=== PATIENT | female | born 1960 | race Caucasian/White ===

== ENCOUNTER → 2020-05-31 11:18 | Outpatient (CLI) | payer OTHER, SELFPAY ==
--- NOTE | ~2020-05-31 | US_ITS ---
US renal BI 05/31/2020 13:13 Procedure: Realtime transabdominal ultrasound of the kidneys and bladder. Indication: Renal cysts. Right flank pain. Comparison: No prior studies for comparison. Findings: Renal echotexture is normal bilaterally without hydronephrosis, contour deforming mass or r enal calculus. There is a right renal cyst measuring 7 cm. The right kidney measures 10.6 cm and left kidney measures 10.7 cm. Bladder within normal limits. Impression: 1: Right renal cyst measuring 7 cm. Reviewed, dictated and finalized at location B. Impression: 1: Right renal cyst measuring 7 cm.
--- NOTE | ~2020-05-31 | US_ITS ---
US abdomen limited INDICATION: Right upper quadrant pain PROCEDURE: Realtime right upper abdominal ultrasound. COMPARISON: No prior studies for comparison. FINDINGS: The pancreas is normal without focal mass or pancreatic ductal dilation. Liver echotexture is normal without focal mass or intrahepatic biliary dilatation. There is normal directional flow i n the portal vein. The gallbladder is normal without stones, gallbladder wall thickening or pericholecystic fluid. Comm on bile duct measures 3 mm. No sonographic Grant's sign. IMPRESSION: 1: Normal limited abdominal ultrasound. Reviewed, dictated and finalized at location B.
== END ==
PROVIDERS: Visit Provider Clinical Nurse Specialist
DX: N28.1 Cyst of kidney, acquired (principal); R10.11 Right upper quadrant pain
CPT/HCPCS: 76705; 76775

== ENCOUNTER 2023-08-19 08:47 | Outpatient (RCR) | payer OTHER, SELFPAY ==
--- NOTE | 2023-08-19 09:46 | PTOPEVAL1 ---
Assessment and note entered by Francisco Munson, PT, DPT Evaluation Information Assessment Status Evaluation Diagnosis L hip bursitis Onset 4 months Subjective Information Pt reports a few months ago she started to notice hip pain reggie. She states she got a cortisone injection which she states she did not notice much relief from. She states her pain has improved over the last couple of weeks but is still lingering. She states she has twin granddaughters she likes to play with. Reported Pain Level Pain Score 3: Self Report Assessment PT Clinical Summary Susan presents to therapy today for her initial evaluation with a diagnosis of L hip bursitis. Today she demonstrates good hip ROM reggie, with fair hip strength. She demonstrates global hip strength grossly 4/5 and has mild tenderness to palpation in her piriformis muscle reggie. She was instructed in a HEP today and encouraged to start weight training 3x/wk. She elected to complete the exercises on her own and follow up in one month if needed. Plan of Care PT Services Indicated Yes Treatment Frequency and follow up in 1 month Duration These treatments will address the objective and functional deficits as defined above. The patient will be advanced safely and appropriately in order for the patient to progress towards his/her prior level of function. Additional exercises will be introduced and as well as a comprehensive home exercise program upon discharge, if needed, ?to ensure carryover of functional gains achieved in the clinic. This treatment plan has been reviewed and agreement upon by the patient.
--- NOTE | 2023-09-16 09:21 | PCPTNOTE ---
Patient did not show up for scheduled appointment this date. Called and LVM with follow up instructions.
--- NOTE | 2023-09-16 09:31 | PTOPDC ---
Assessment and note entered by Francisco Munson, PT, DPT Evaluation Information Assessment Status Discharge - Pt Not Present Diagnosis L hip bursitis Onset 4 months Subjective Information Pt did not show up for scheduled re-evaluation this date. Called and followed up with patient, she states she is doing well and does not need to continue therapy. Assessment PT Clinical Summary Susan was evaluated on 08/19/23 and has been doing her prescribed HEP for one month. She will be discharged at this time per pt request.
== END 2023-09-16 10:46 | disposition home or self-care (01) ==
LOC: ANHGOSHPT 08:47
PROVIDERS: PCP Internal Medicine; Visit Provider Clinical Nurse Specialist
DX: M70.62 Trochanteric bursitis, left hip (principal)
CPT/HCPCS: 97110; 97161; 99199

== ENCOUNTER 2024-08-25 14:22 | Outpatient (CLI) | payer OTHER, SELFPAY | END 2024-08-25 14:23 | disposition home or self-care (01) | LOC: ANHAUDIO 14:24 | PROVIDERS: PCP Internal Medicine; Visit Provider Nurse Practitioner | DX: H90.3 Sensorineural hearing loss, bilateral (principal); H93.13 Tinnitus, bilateral | CPT/HCPCS: 92557; 92567 ==

== ENCOUNTER 2024-12-12 14:08 | Outpatient (CLI) | payer OTHER, SELFPAY ==
--- NOTE | ~2024-12-12 | CT_ITS ---
EXAMINATION: CT IAC/mastoids BI w con DATE: 12/12/2024 14:58 INDICATION: Hearing loss. TECHNIQUE: Computed tomography (CT) of the temporal bones was performed with 75 mL Omnipaque 350 intr avenous contrast. Automated exposure control and iterative reconstruction technique were employed. Th e dose-length product was 171.03 mGy-cm. 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 There is a dis secting aneurysm of left cervical internal carotid artery with maximum diameter of 8 mm. RIGHT TEMPORAL BONE: The internal auditory canal, cochlea, vestibule, semicircular canals, vestibular aqueduct, carotid ca nal, jugular bulb, facial nerve course, ossicles, Prussak space, scutum, tympanic membrane, external auditory canal, and mastoid air cells are normal. LEFT TEMPORAL BONE: The internal auditory canal, cochlea, vestibule, semicircular canals, vestibular aqueduct, carotid ca nal, jugular bulb, facial course, ossicles, Prussak space, scutum, tympanic membrane, and mastoid air cells are normal. There is a small volume of cerumen in the external auditory canal. IMPRESSION: 1. Normal temporal bones. 2. 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 3. 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 Neck CTA is recommended. Reviewed, dictated and finalized at location A. ULTURIST
--- OUTSIDE RECORDS SUMMARY | 2024-12-12 15:05 | XMS_ITS | Encounter Summary ---
Author Organization [facility] Address [address] [place] [address] Care Team Providers Care Enrollment Coordinator Name Role Phone Sample, Geovani Flannery MD Unavailable [phone] Aundrea Velásquez MD Primary Care Provider Judith Goel MD Unavailable [phone] Remberto Xavier MD Unavailable Madelyn Leos MD Unavailable [phone] Remberto Xavier MD Primary Care Provider [phone] Remberto Xavier MD Unavailable Anthony Arzola DO Primary Care Provider Encounter Details Date Type Department Care Team (Late st Contact Info) Description 12/20/2014 [facility] Outpatient Visit [facility] - Endocrinology [address], [address] [place] [address] [place] [id number] [place] [address] [address] [place] [address] Social History Tobacco Use Types Packs/Day Years Used Date Smoking Tobacco: Former Smokeless Tobacco: Never Alcohol Use Standard Drinks/Week Comments Yes 0 (1 standard drink = 0.6 oz pur e alcohol) Sex and Gender Information Value Date Recorded Sex Assigned at Not on file Gender Identity Not on file Sexual Orientation Not on file documented as of this encounter Plan of Treatment Upcoming Encounters Date Type Department Care Team (Late st Contact Info) Description 06/27/2025 10:40 AM CDT Office Visit [facility] - Endocrinology [address], [address] [place] [address] [place] [address] [address] [place] [address] documented as of this encounter Visit Diagnoses Not on filedocumented in this encounter Care Teams Enrollment Coordinator Relationship Specialty Start Date End Date Aundrea Velásquez MD [address] [facility] [address] [place] [id number] PCP - General Internal Medicine 04/06/14 08/30/15 Remberto Xavier MD [address] [address] [place] [address] PCP - Attributed-Exclusive Choice 10/16/19 11/15/19 Remberto Xavier MD [address] [facility] [address] [place] [address] PCP - General Family Medicine 03/21/20 12/18/20 Remberto Xavier MD [address] [address] [place] [address] PCP - Attributed-[facility] EHP STL 01/15/20 02/14/20 Anthony Arzola DO [address] [facility] [address] [place] [address] PCP - General Internal Medicine 12/19/20 [place] [address] [facility] [address] [place] [address] Lead Massage Therapist Obstetrics and Gynecology 01/15/12 07/08/17 [place] [address] [address] [place] [address] Endocrinology 05/28/15 Madelyn Leos MD [address] [facility] [address] [place] [address] Obstetrics and Gynecology 07/09/17 documented as of this encounter
--- OUTSIDE RECORDS SUMMARY | 2024-12-12 15:05 | XMS_ITS | Encounter Summary ---
Author Organization [facility] Address [address] [facility] [place] [address] Care Team Providers Care Third Rigger Name Role Phone Sample, Geovani Flannery MD Unavailable Aundrea Velásquez MD Primary Care Provider Judith Goel MD Unavailable [phone] Remberto Xavier MD Unavailable Madelyn Leos MD Unavailable [phone] Remberto Xavier MD Primary Care Provider Remberto Xavier MD Unavailable Anthony Arzola DO Primary Care Provider Encounter Details Date Type Department Care Team (Late st Contact Info) Description 12/20/2014 [facility] Outpatient Visit [facility] - Endocrinology [address] [facility], [address] [place] [address] [place] [address] [place] [address] [address] [place] [address] Social History Tobacco Use Types [...] Description 06/27/2025 10:40 AM CDT Office Visit [facility] - Endocrinology [address] [facility], [address] [place] [address] [place] [address] [facility] [address] [place] [address] documented as of this encounter Visit Diagnoses Not on filedocumented in this encounter Care Teams Third Rigger Relationship Specialty Start Date End Date Aundrea Velásquez MD [address] [facility] [address] [place] [address] PCP - General Internal Medicine 04/06/14 08/30/15 Remberto Xavier MD [address] [facility] [address] [address] PCP - Attributed-Exclusive Choice 10/16/19 11/15/19 Remberto Xavier MD [address] [facility] [address] [place] [address] PCP - General Family Medicine 03/21/20 12/18/20 Remberto Xavier MD [address] [facility] [address] [place] [address] PCP - Attributed-[facility] EHP STL 01/15/20 02/14/20 Anthony Arzola DO [address] [facility] [address] [place] [address] PCP - General Internal Medicine 12/19/20 [place] [address] [facility] [address] [place] [address] Primary Education Professor Obstetrics and Gynecology 01/15/12 07/08/17 [place] [address] [facility] [address] [place] [address] Endocrinology 05/28/15 Madelyn Leos MD [address] [facility] [address] [place] [address] Obstetrics and Gynecology 07/09/17 documented as of this encounter
--- OUTSIDE RECORDS SUMMARY | 2024-12-12 15:05 | XMS_ITS | Encounter Summary ---
Author Organization [facility] Address [address] [place] [address] Care Team Providers Care Armament Repairer Name Role Phone Sample, Geovani Flannery MD Unavailable [phone] Judith Goel MD Unavailable Remberto Xavier MD Unavailable Madelyn Leos MD Unavailable [phone] Remberto Xavier MD Primary Care Provider Remberto Xavier MD Unavailable Anthony Arzola DO Primary Care Provider [phone] Encounter Details Date Type Department Care Team (Late st Contact Info) Description 02/07/2016 [facility] Outpatient Visit [facility] Remberto Xavier MD [address] [place] [address] Social History Tobacco Use Types Packs/Day Years [...] Description 06/27/2025 10:40 AM CDT Office Visit [facility] - Endocrinology [address] [facility], [address] [place] [address] [place] [address] [facility] [address] [place] [address] documented as of this encounter Goals Goal Patient Goal Type Associated Problems Recent Progress Patient-Stated? Author Blood Pressure < 140/90 Blood Pressure 118/78(2023 11:14 AM CDT) No Marissa Fletcher MA documented as of this encounter Visit Diagnoses Not on filedocumented in this encounter Care Teams Armament Repairer Relationship Specialty Start Date End Date Remberto Xavier MD [address] [address] PCP - Attributed-Exclusive Choice 10/16/19 11/15/19 Remberto Xavier MD [address] [facility] [address] [place] [address] PCP - General Family Medicine 03/21/20 12/18/20 Remberto Xavier MD [address] [address] PCP - Attributed-[facility] EHP STL 01/15/20 02/14/20 Anthony Arzola DO [address] [facility] [address] [place] [address] PCP - General Internal Medicine 12/19/20 [place] Bai [place] [id number] [place] [address] [address] [place] [address] Attendance Clerk Obstetrics and Gynecology 01/15/12 07/08/17 [place] [address] [facility] [address] [place] [address] Endocrinology 05/28/15 Madelyn Leos MD [address] [facility] [address] [place] [address] Obstetrics and Gynecology 07/09/17 documented as of this encounter
--- OUTSIDE RECORDS SUMMARY | 2024-12-12 15:06 | XMS_ITS | Referral Summary ---
Author Organization [facility] [employer] Address [address] [place] [address] Care Team Providers Care Sheet Metal Assembler Name Role Phone Judith Goel MD Unavailable [phone] Madelyn Leos MD Unavailable [phone] Anthony Arzola DO Primary Care Provider [phone] Source Comments [facility],non-owned Affiliates and Associated Physician Practices is amultiple site organization consisting of ambulatory clinics and hospital sitesin [place], [place], [place] and [place]. This disclosure is being madepursuant to the Care Everywhere program and may not contain all information available regarding this patient. 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 Medications * Be aware that medications may not be up to date on this document. Alwaysverify current medications with the patient. Medication Sig Dispensed Refills Start Date End Date Status Calcium Carbonate-Vitamin D (CALCIUM 600/VITAMIN D PO) Take 600 mg by mouth 2 times daily Active amLODIPine (NORVASC) 5 MG tablet Take 1 tablet by mouth once daily 90 tablet 3 04/14/2019 Active ASPIRIN 81 PO Take 81 mg by mouth Once daily 11/16/2019 Active Vitamin D3 (Cholecalciferol) 50 MCG (2000 UT) capsule Take 1 (one) capsule by mouth once daily 06/19/2022 Active alendronate (Fosamax) 70 MG tablet Take 1 (one) tablet by mouth every 7 days before meal 06/15/2024 Active levothyroxine (Synthroid) 50 MCG tabletIndications:Post operative hypothyroidism TAKE 1 TABLET BY MOUTH DAILY BEFORE BREAKFAST 90 tablet 2 09/15/2024 Active Active Problems Problem Noted Date Diagnosed Date Age-related osteoporosis wit hout current pathological fracture 06/20/2019 Postoperative hypothyroidism 05/26/2019 Left thyroid nodule 05/16/2019 Squamous cell papilloma of anal canal 06/12/2017 Vitamin D insufficiency 10/20/2016 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 11/29/2015 Early menopause 10/30/2015 HTN (hypertension) 04/07/2014 H/O partial thyroidectomy 04/07/2014 Urethral polyp 04/13/2013 Resolved Problems Problem Noted Date Diagnosed Date Resolved Date Osteoporosis 10/30/2015 06/20/2019 Vitamin D deficiency disease 04/07/2014 06/20/2019 Osteopenia 04/07/2014 11/29/2015 Immunizations Name Administration Dates Next Due Covid Single Cell Technology primary monoval ent 12+ yr 0.3mL Purple cap 11/29/2020,11/07/2020 Social History Tobacco Use Types Packs/Day Years Used Date Smoking Tobacco: Former Smokeless Tobacco: Never Tobacco Cessation:Counseling Given: Not Answered Comments:quit 30 yrs ago. Alcohol Use Standard Drinks/Week Comments Yes 0 (1 standard drink = 0.6 oz pur e alcohol) in moderation AUDIT-C Answer Date Recorded Frequency of Alcohol Consumption 2-3 times a wee k 12/19/2020 Average Number of Drinks 1 or 2 021 Frequency of Binge Drinking Never 01/2021 Sex and Gender Information Value Date Recorded Sex Assigned at Not on file Gender Identity Not on file Sexual Orientation Not on file Last Filed Vital Signs Vital Sign Reading Time Taken Comments Blood Pressure 118/78 06/27/2024 11:14 AM CDT Pulse 69 06/27/2024 11:14 AM CDT Temperature 36.5 ??C (97.7 ??F) 06/19/2022 9:37 AM CD T Respiratory Rate 20 06/20/2021 9:44 AM CDT Oxygen Saturation 98% 06/27/2024 11:14 AM CDT Inhaled Oxygen Concentration - - Weight 57.2 kg (126 lb) 06/27/2024 11:14 AM CDT Height 170.2 cm (5' 7 ) 06/27/2024 11:14 AM CDT Body Mass Index 19.73 06/27/2024 11:14 AM CDT Functional Status Functional Status Response Date of Assess ment Is person deaf or have serious hearing difficult y? No 05/16/2019 Is person blind or have serious difficulty seein g? No 05/16/2019 Does person have serious dif ficulty walking/climbing stairs? No 05/16/2019 Does person have difficulty dressing/bathing? No 05/16/2019 Does person have difficulty doing errands alone? No 05/16/2019 Cognitive Status Response Date of Assessm ent Does person have difficulty concentrating/remembering/making decisions? No 05/16/2019 Plan of Treatment Upcoming Encounters Date Type Department Care Team (Late st Contact Info) Description 06/27/2025 10:40 AM CDT Office Visit [facility] - Endocrinology [id number] [place] [phone] [place] Go[place] [id number] [place] [id number] Goals Goal Patient Goal Type Associated Problems Recent Progress Patient-Stated? Author Blood Pressure < 140/90 Blood Pressure 118/78(2023 11:14 AM CDT) No Marissa Fletcher MA Procedures Procedure Name Priority Date/Time Associated Diagnosis Comments MAMMO BILAT SCREENING W KEVIN Routine 06/27/2024 10:23 AM CDT Encounter for screening mammogram for malignant neoplasm of breast DEXA BONE DENSITY AXIAL SKELETON Routine 07/23/2023 11:25 AM CDT Age-related osteoporosis without current pathological fracture HEPATITIS C AB W RFLX VERIFICATION Routine 03/26/2018 11:24 AM CDT Need for hepatitis C screening test ENDOSCOPY, COLON, SCREENING Routine 04/22/2017 1:56 PM CDT LIPID PROFILE Routine 04/07/2014 10:56 AM CDT H/O partial thyroidectomy from Last 3 Months or Most Recently Relevant to Health Maintenance Results * Mammo Bilat Screening W Kevin (06/27/2024 10:23 AM CDT) Anatomical Region Laterality Modality Breast Bilateral Mammography 06/27/2024 10:5 8 AM CDT Impressions 06/27/2024 10:59 AM CDT : Annual screening mammography is recommended. OVERALL FINAL ASSESSMENT: ??BI-RADS Category 1: Negative. > Interpreting Provider: Verna Darden MD on 06/27/2024 10:59 AM Narrative 06/27/2024 10:59 AM CDT EXAMINATION: BILATERAL DIGITAL SCREENING MAMMOGRAM AND BILATERAL BREAST TOMOSYNTHESIS HISTORY: Screening. COMPARISON: Serial examinations dating back to 10/21/2019 TECHNIQUE: ??BILATERAL digital breast tomosynthesis (DBT) and synthetic 2D digital mammogram images were obtained (bilateral craniocaudal and mediolateral oblique projections) including computer aided detection (CAD.) BREAST PARENCHYMAL COMPOSITION: Category B: There are scattered areas of fibroglandular density. MAMMOGRAM FINDINGS: There is no suspicious finding in either breast. Overall, there has been no significant interval change. Anthony Arzola DO MAMMO ORDERABLES * DEXA BONE DENSITY AXIAL SKELETON (07/23/2023 11:25 AM CDT) Anatomical Region Laterality Modality Mammography 07/23/2023 11:3 4 AM CDT Narrative 07/23/2023 11:35 AM CDT BONE MINERAL DENSITY STUDY INDICATION: ??Ovarian failure FINDINGS: The average bone mineral density from L1 to L4 is 1.114 g/cm2. ??T-score is -0.7 which is the standard deviations (SD) of the mean for the young adult. The ??Z-score is 1.2 which is the standard deviations for the mean for age matched control. Since 11/29/2020 increased 3.8% bone mineral density. The average bone mineral density of the totalright neck of the hip is 0.641 g/cm2. ??T-score is -2.9. ??Z-score is -1.2. Since 11/29/2020 increased 2.6% bone mineral density. 10 year probability of fracture major osteoporotic: 13.7%. Hip: 4.0%.. ASSESSMENT: The above findings represent no significant increased risk of fracture through the spine and significant increased risk of fracture through femur. WOR[employer]IZATION DEFINITIONS OSTEOPENIA = -1 TO -2.5 SD BELOW T-SCORE OSTEOPOROSIS = LESS THAN -2.5 SD BELOW T-SCORE 1. No significant- ??< 1 SD below T score 2. Mild ?- ? 1 -2.0 SD below T-score 3. Moderate ? - ? 2 -2.5 SD below T-score 4. Significant ? - ?? > 2.5 SD below T-score > Interpreting Provider: Calin Arrington MD on 07/23/2023 11:35 AM Procedure Note Calin Arrington MD - 07/23/2023 BONE MINERAL DENSITY STUDY INDICATION: Ovarian failure FINDINGS: The average bone mineral density from L1 to L4 is 1.114 g/cm2. T-scoreis -0.7 which is the standard deviations (SD) of the mean for the youngadult. The Z-score is 1.2 which is the standard deviations for the mean forage matched control. Since 11/29/2020 increased 3.8% bone mineral density. The average bone mineral density of the totalright neck of the hip is0.641 g/cm2. T-score is -2.9. Z-score is -1.2. Since 11/29/2020 increased2.6% bone mineral density. 10 year probability of fracture major osteoporotic: 13.7%. Hip: 4.0%.. ASSESSMENT: The above findings represent no significant increased riskof fracture through the spine and significant increased risk of fracture through femur. WORLD [employer]GANIZATION DEFINITIONS OSTEOPENIA = -1 TO -2.5 SD BELOW T-SCORE OSTEOPOROSIS = LESS THAN -2.5 SD BELOW T-SCORE 1. No significant- < 1 SD below T score 2. Mild - 1 -2.0 SD below T-score 3. Moderate - 2 -2.5 SD below T-score 4. Significant - > 2.5 SD below T-score > Interpreting Provider: Calin Arrington MD on 07/23/2023 11:35 AM Judith Goel MD DEXA ORDERABLES * HEPATITIS C AB W RFLX VERIFICATION (03/26/2018 11:24 AM CDT) Hepatitis C Antibody <0.1 0.0 - 0.9 s/co ratio [facility] ACCOUNT BILL Blood BLOOD SPECIMEN / Unknown 03/26/2018 11:24 AM CDT 03/26/2018 Narrative Resulting Agency Comment [facility] [place] [address] [facility] ??[facility] [phone] Remberto Xavier MD LAB - CHEMISTRY [facility] Organization Address City/State/ZIP Co de Phone Number [facility] ACCOUNT BILL [address] [place] [address] * ENDOSCOPY, COLON, SCREENING (04/22/2017 1:56 PM CDT) Report Endoscopy POC _ Patient Name: Susan Carballo ?Procedure Date: 04/22/2017 1:56 PM ? Date of : 1960 ?Admit Type: Outpatient Age: 57 ? Gender: Female Attending MD: Marty Lira MD ? _ Procedure: ? Colonoscopy Indications: ? Screening for colorectal malignant neoplasm Providers: ? Marty Lira MD (Doctor), Jaz Bess RN Referring MD: ?Remberto Xavier MD (Referring MD) Medicines: ? Monitored Anesthesia Care Complications: ? No immediate complications. _ Procedure: ? Pre-Anesthesia Assessment: ? - ASA Grade Assessment: II - A patient with mild systemic ? disease. ? - Airway Examination: Mallampati Class I (tonsillar ? pillars visualized). ? After I obtained informed consent, the scope was passed ? under direct vision. Throughout the procedure, the ? patient's blood pressure, pulse, and oxygen saturations ? were monitored continuously. The Colonoscope was ? introduced through the anus and advanced to the cecum, ? identified by appendiceal orifice and ileocecal valve. The ? colonoscopy was performed without difficulty. The patient ? tolerated the procedure well. The quality of the bowel ? preparation was adequate. ? Impression: ?- One 6 mm polyp in the transverse colon, removed with a ? jumbo cold forceps. Resected and retrieved. ? - One 6 mm polyp at the anus, removed with a hot snare. ? Resected and retrieved. ? - Diverticulosis. Findings: ? A 6 mm polyp was found in the transverse colon. The polyp was sessile. ? The polyp was removed with a jumbo cold forceps. Resection and retrieval ? were complete. Estimated blood loss: none. ? A 6 mm polyp was found at the anus. The polyp was sessile. The polyp was ? removed with a hot snare. Resection and retrieval were complete. ? Estimated blood loss: none. ? Diverticula were found in the colon. _ Recommendation: ?- Repeat colonoscopy in 5 years for surveillance based on ? pathology results. ? - Await pathology results. ? Procedure Code(s): ? --- Professional --- ? 06267, Colonoscopy, flexible; with removal of tumor(s), polyp(s), or ? other lesion(s) by snare technique ? 23614, 59, Colonoscopy, flexible; with biopsy, single or multiple ? --- Technical --- ? 52198, Colonoscopy, flexible; with removal of tumor(s), polyp(s), or ? other lesion(s) by snare technique ? 31058, 59, Colonoscopy, flexible; with biopsy, single or multiple Diagnosis Code(s): ? --- Professional --- ? Z12.11, Encounter for screening for malignant neoplasm of colon ? D12.3, Benign neoplasm of transverse colon (hepatic flexure or splenic ? flexure) ? K62.0, Anal polyp ? K57.30, Diverticulosis of large intestine without perforation or abscess ? without bleeding ? --- Technical --- ? Z12.11, Encounter for screening for malignant neoplasm of colon ? D12.3, Benign neoplasm of transverse colon (hepatic flexure or splenic ? flexure) ? K62.0, Anal polyp ? K57.30, Diverticulosis of large intestine without perforation or abscess ? without bleeding CPT copyright 2015 [employer]. All rights reserved. The codes documented in this report are preliminary and upon pizzamaker review may be revised to meet current compliance requirements. Marty Lira MD 04/22/2017 2:37:44 PM This report has been signed electronically. Number of Addenda: 0 Note Initiated On: 04/22/2017 1:56 PM [facility] ENDOSCOPY 04/22/2017 1:56 PM CDT Marty Lira MD GI PROCEDURE ORDERAB LES Performing Organization Address [facility] Co de Phone Number [facility] ENDOSCOPY * (ABNORMAL) LIPID PROFILE (04/07/2014 10:56 AM CDT) Cholesterol 202(H) 100 - 199 mg/dL [facility] ACCOUNT BILL Triglycerides 73 0 - 149 mg/dL [facility] ACCOUNT BILL HDL Cholesterol 91 >39 mg/dL [facility] ACCOUNT BILL Comment: According to ATP-III Guidelines, HDL-C >59 mg/dL is considered a negative risk factor for CHD. VLDL Calculated 15 5 - 40 mg/dL [facility] ACCOUNT BILL LDL Calculated 96 0 - 99 mg/dL [facility] ACCOUNT BILL Comment NOT NEEDED [facility] ACCOUNT BILL Comment:Ancillary determined the test is not needed Blood specimen (specimen) BLOOD SPECIMEN / Unknown 04/07/2014 10:56 AM CDT 04/07/2014 12:38 PM CDT Narrative Resulting Agency Comment [facility] [address] ??[facility] [phone] Aundrea Velásquez MD LAB - CHEMISTRY JAMES [facility]URN Performing Organization Address City/[facility]/ZIP Co de Phone Number [facility] ACCOUNT BILL from Last 3 Months or Most Recently Relevant to Health Maintenance Advance Directives * Full Code (Latest Code Status on File) Date Activated Date Inactivated Comments 05/16/2019 1:49 PM 05/17/2019 4:02 PM Care Teams Sheet Metal Assembler Relationship Specialty Start Date End Date Anthony Arzola DO [address] [employer] [address] [place] [address] PCP - General Internal Medicine 12/19/20 [place] [address] [facility] [address] [place] [address] Endocrinology 05/28/15 Madelyn Leos MD [address] [place] [address] Obstetrics and Gynecology 07/09/17
--- OUTSIDE RECORDS SUMMARY | 2024-12-12 15:06 | XMS_ITS | Patient Health Summary ---
Author Organization [facility] Address [address] [place] [address] Care Team Providers Care Graduate Student Instructor Name Role Phone Judith Goel MD Unavailable Madelyn Leos MD Unavailable Anthony Arzola DO Primary Care Provider [phone] Note from [facility],non-owned Affiliates and Associated Physician Practices is amultiple site organization consisting of ambulatory clinics and hospital sitesin [place], [place], [place] and [place]. This disclosure is being madepursuant to the Care Everywhere program and may not contain all information available regarding this patient. Last updated 18.[facility] Allergies * Sulfa Drugs(Rash) -Low Criticality Medications * Be aware that medications may not be up to date on this document. Alwaysverify current medications with the patient. * Calcium Carbonate-Vitamin D (CALCIUM 600/VITAMIN D PO) Take 600 mg by mouth 2 times daily * amLODIPine (NORVASC) 5 MG tablet(Started 04/14/2019) Take 1 tablet by mouth once daily 3 refills remaining * ASPIRIN 81 PO(Started 11/16/2019) Take 81 mg by mouth Once daily * Vitamin D3 (Cholecalciferol) 50 MCG (1999 UT) capsule(Started 06/19/2022) Take 1 (one) capsule by mouth once daily * alendronate (Fosamax) 70 MG tablet(Started 06/15/2024) Take 1 (one) tablet by mouth every 7 days before meal * levothyroxine (Synthroid) 50 MCG tablet(Started 09/15/2024) TAKE 1 TABLET BY MOUTH DAILY BEFORE BREAKFAST 2 refills by 09/15/2025 Active Problems Problem Noted Date Diagnosed Date [...] disease 04/07/2014 06/20/2019 Osteopenia 04/07/2014 11/29/2015 Immunizations * Covid Pfizer primary monovalent 12+ yr 0.3mL Purple cap(Given 11/29/2020, 11/07/2020) Social History Tobacco Use Types Packs/Day Years [...] Mass Index 19.73 06/27/2024 11:14 AM CDT Procedures * MAMMO BILAT SCREENING W KEVIN(Performed 06/27/2024) Performed for Encounter for screening mammogram for malignant neoplasm of breast * T3 TOTAL(Performed 06/06/2024) Performed for Postoperative hypothyroidism * T4 FREE(Performed 06/06/2024) Performed for Postoperative hypothyroidism * TSH(Performed 06/06/2024) Performed for Postoperative hypothyroidism * DEXA BONE DENSITY AXIAL SKELETON(Performed 07/23/2023) Performed for Age-related osteoporosis without current pathological fracture * MAMMO BILAT SCREENING W KEVIN(Performed 06/18/2023) Performed for Encounter for mammogram to establish baseline mammogram * T3 TOTAL(Performed 06/01/2023) Performed for Postoperative hypothyroidism * T4 FREE(Performed 06/01/2023) Performed for Postoperative hypothyroidism * TSH(Performed 06/01/2023) Performed for Postoperative hypothyroidism * T3 TOTAL(Performed 06/09/2022) Performed for Postoperative hypothyroidism, Age-related osteoporosis without current pathological fracture * TSH(Performed 06/09/2022) Performed for Postoperative hypothyroidism, Age-related osteoporosis without current pathological fracture * T4 FREE(Performed 06/09/2022) Performed for Postoperative hypothyroidism, Age-related osteoporosis without current pathological fracture * COMPREHENSIVE METABOLIC PANEL(Performed 06/09/2022) Performed for Postoperative hypothyroidism, Vitamin D insufficiency, Age-related osteoporosis without current pathological fracture * MAMMO BILAT SCREENING W KEVIN(Performed 05/22/2022) Performed for Encounter for screening mammogram for breast cancer * VITAMIN D 25-HYDROXY(Performed 06/17/2021) Performed for Postoperative hypothyroidism, Vitamin D insufficiency * BASIC METABOLIC PANEL (CALCIUM TOTAL)(Performed 06/17/2021) Performed for Postoperative hypothyroidism * TSH HI LOW REFLEX FREE T4(Performed 06/17/2021) Performed for Postoperative hypothyroidism * T3 TOTAL(Performed 12/21/2020) Performed for Postoperative hypothyroidism * T4 FREE(Performed 12/21/2020) Performed for Postoperative hypothyroidism * TSH(Performed 12/21/2020) Performed for Postoperative hypothyroidism * US SOFT TISSUE HEAD NECK(Performed 12/19/2020) Performed for Postoperative hypothyroidism * DEXA BONE DENSITY AXIAL SKELETON(Performed 11/29/2020) Performed for Age-related osteoporosis without current pathological fracture * MAMMO BILAT SCREENING(Performed 11/29/2020) Performed for Encounter for screening mammogram for malignant neoplasm of breast * VITAMIN D 25-HYDROXY(Performed 03/19/2020) Performed for Vitamin D insufficiency * T3 TOTAL(Performed 03/19/2020) Performed for Postoperative hypothyroidism * T4 FREE(Performed 03/19/2020) Performed for Postoperative hypothyroidism * TSH(Performed 03/19/2020) Performed for Postoperative hypothyroidism * BASIC METABOLIC PANEL (CALCIUM TOTAL)(Performed 03/19/2020) Performed for Age-related osteoporosis without current pathological fracture * MAMMO BILAT SCREENING(Performed 10/21/2019) Performed for Screening for breast cancer * T3 TOTAL(Performed 10/18/2019) Performed for Postoperative hypothyroidism * T4 FREE(Performed 10/18/2019) Performed for Postoperative hypothyroidism * TSH(Performed 10/18/2019) Performed for Postoperative hypothyroidism * VITAMIN D 25-HYDROXY(Performed 10/18/2019) Performed for Vitamin D insufficiency * BASIC METABOLIC PANEL (CALCIUM TOTAL)(Performed 10/18/2019) Performed for Postoperative hypothyroidism, Vitamin D insufficiency * BASIC METABOLIC PANEL (CALCIUM TOTAL)(Performed 08/08/2019) Performed for Vitamin D insufficiency, Age-related osteoporosis without current pathological fracture * T3 TOTAL(Performed 08/08/2019) Performed for Postoperative hypothyroidism * T4 FREE(Performed 08/08/2019) Performed for Postoperative hypothyroidism * TSH(Performed 08/08/2019) Performed for Postoperative hypothyroidism * VITAMIN D 25-HYDROXY(Performed 06/20/2019) Performed for Postoperative hypothyroidism * COMPREHENSIVE METABOLIC PANEL(Performed 06/20/2019) Performed for Postoperative hypothyroidism * T3 TOTAL(Performed 06/16/2019) * TSH+FREE T4 PANEL(Performed 06/16/2019) * ENDOTRACHEAL TUBE NOTE(Performed 05/17/2019) * CALCIUM BLOOD(Performed 05/17/2019) Performed for 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 * PATHOLOGY TISSUE EXAM (STL)(Performed 05/16/2019) Performed for Diagnosis unknown * THYROIDECTOMY PARTIAL LOBECTOMY(Performed 05/16/2019) * EKG 12-LEAD(Performed 05/16/2019) Performed for Preop examination * BASIC METABOLIC PANEL (CALCIUM TOTAL)(Performed 05/16/2019) Performed for Preop examination * T3 TOTAL(Performed 03/24/2019) Performed for 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 * T4 FREE(Performed 03/24/2019) Performed for 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 * TSH(Performed 03/24/2019) Performed for 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 * IMAGING/RADIOLOGY/XRAY RESULTS ORDER(Performed 03/24/2019) * DEXA BONE DENSITY AXIAL SKELETON(Performed 12/07/2018) Performed for Postmenopause, Encounter for screening for osteoporosis * MAMMO BILAT SCREENING(Performed 06/21/2018) Performed for Screening mammogram, encounter for * REF LAB COMMENT(Performed 03/26/2018) Performed for Need for hepatitis C screening test * HEPATITIS C AB W RFLX VERIFICATION(Performed 03/26/2018) Performed for Need for hepatitis C screening test * VITAMIN D 25-HYDROXY(Performed 03/26/2018) Performed for Vitamin D insufficiency * COMPREHENSIVE METABOLIC PANEL(Performed 03/26/2018) Performed for Need for hepatitis C screening test * T3 TOTAL(Performed 03/26/2018) Performed for 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 * T4 FREE(Performed 03/26/2018) Performed for 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 * TSH(Performed 03/26/2018) Performed for 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 * T3 TOTAL(Performed 07/09/2017) Performed for Urethral polyp * T4 TOTAL(Performed 07/09/2017) Performed for Urethral polyp * TSH(Performed 07/09/2017) Performed for Urethral polyp * PATHOLOGY TISSUE EXAM (STL)(Performed 04/22/2017) Performed for Screening for colon cancer * COLONOSCOPY EXCISION LESION CAUTERY BY SNARE(Performed 04/22/2017) Performed for Screening for colon cancer * COLONOSCOPY BIOPSY (ANY METHOD)(Performed 04/22/2017) Performed for Screening for colon cancer * COLONOSCOPY SCREEN(Performed 04/22/2017) Performed for Screening for colon cancer * ENDOSCOPY, COLON, SCREENING(Performed 04/22/2017) * MAMMO BILAT SCREENING(Performed 01/07/2017) Performed for Visit for screening mammogram * T3 TOTAL(Performed 07/08/2016) Performed for 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 * T4 FREE(Performed 07/08/2016) Performed for 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 * TSH(Performed 07/08/2016) Performed for 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 * US SOFT TISSUE HEAD NECK(Performed 12/06/2015) Performed for H/O partial thyroidectomy * T3 TOTAL(Performed 11/29/2015) Performed for H/O partial thyroidectomy * T4 FREE(Performed 11/29/2015) Performed for H/O partial thyroidectomy * TSH(Performed 11/29/2015) Performed for H/O partial thyroidectomy * LAB RESULTS ORDER(Performed 11/21/2015) * MAMMO RIGHT DIAGNOSTIC(Performed 06/04/2015) Performed for Abnormal mammogram, unspecified * T3 TOTAL(Performed 05/28/2015) Performed for H/O partial thyroidectomy * T4 FREE(Performed 05/28/2015) Performed for H/O partial thyroidectomy * TSH(Performed 05/28/2015) Performed for H/O partial thyroidectomy * DEXA BONE DENSITY 2 SITES(Performed 05/28/2015) Performed for Osteopenia * MAMMO BILAT SCREENING(Performed 05/28/2015) Performed for Other screening mammogram * US SOFT TISSUE HEAD NECK(Performed 12/27/2014) Performed for Multinodular goiter * FINE NEEDLE ASPIRATION(Performed 12/20/2014) Performed for Multinodular goiter * THYROID AB PANEL (TPO AB+THYROGLOB AB)(Performed 12/20/2014) Performed for Nontoxic multinodular goiter * T3 TOTAL(Performed 12/20/2014) Performed for Nontoxic multinodular goiter * T4 FREE(Performed 12/20/2014) Performed for Nontoxic multinodular goiter * TSH(Performed 12/20/2014) Performed for Nontoxic multinodular goiter * HEMOGLOBIN A1C(Performed 04/07/2014) Performed for H/O partial thyroidectomy * TSH(Performed 04/07/2014) Performed for H/O partial thyroidectomy * VITAMIN D 25-HYDROXY(Performed 04/07/2014) Performed for H/O partial thyroidectomy * COMPREHENSIVE METABOLIC PANEL(Performed 04/07/2014) Performed for H/O partial thyroidectomy * LIPID PROFILE(Performed 04/07/2014) Performed for H/O partial thyroidectomy * MAMMO BILAT SCREENING(Performed 02/28/2014) Performed for Other screening mammogram * PATHOLOGY/CYTOLOGY REPORT ORDER(Performed 07/06/2013) * CARDIAC RHYTHM STRIP ORDER(Performed 07/02/2013) * PATHOLOGY TISSUE EXAM (STL)(Performed 07/01/2013) Performed for Urethral polyp * CYSTOSCOPY (FLEXIBLE/RIGID)(Performed 07/01/2013) Performed for Urethral Syndrome Nos * WET PREP SMEAR - POINT OF CARE(Performed 05/31/2013) Performed for History of cervicitis * VAGINITIS PLUS (BV CA CT NG TRICH)(Performed 04/13/2013) Performed for Cervicitis * MAMMO BILAT SCREENING(Performed 07/08/2011) Performed for Other screening mammogram * MAMMO BILAT SCREENING(Performed 06/03/2010) Performed for Other Screening Mammogram * MAMMO BILAT SCREENING(Performed 03/14/2009) Performed for Other Screening Mammogram * GROSS + MICRO EXAM(Performed 11/30/2001) Results * Mammo Bilat Screening W Kevin (06/27/2024 10:23 AM CDT) Only the most recent of3 resultswithin the time period is included. Anatomical Region Laterality Modality Breast Bilateral Mammography [...] change. Anthony Arzola DO MAMMO ORDERABLES * TSH (06/06/2024 10:55 AM CDT) Only the most recent of15 resultswithin the time period is included. TSH 0.679 0.450 - 4.500 uIU/mL [facility] ACCOUNT BILL Blood BLOOD SPECIMEN / Unknown 06/06/2024 10:55 AM CDT 06/06/2024 Narrative Resulting Agency Comment Lab Testing performed at: [facility] [address] ??[place] [phone] Judith Goel MD LAB - CHEMISTRY ORDERABLES [facility] ACCOUNT BILL [address] [place] [address] * T4 FREE (06/06/2024 10:55 AM CDT) Only the most recent of13 resultswithin the time period is included. T4 Free 1.62 0.82 - 1.77 ng/dL [facility] ACCOUNT BILL Blood BLOOD SPECIMEN / Unknown 06/06/2024 10:55 AM CDT 06/06/2024 Narrative Resulting Agency Comment Lab Testing performed at: [facility] [place] [address] ??[place] [phone] Judith Goel MD LAB - CHEMISTRY ORDERABLES Performing Organization Address [facility] Co de Phone Number [facility] ACCOUNT BILL [address] [place] [address] * T3 TOTAL (06/06/2024 10:55 AM CDT) Only the most recent of15 resultswithin the time period is included. T3 Total 111 71 - 180 ng/dL [facility] ACCOUNT BILL Blood BLOOD SPECIMEN / Unknown 06/06/2024 10:55 AM CDT 06/06/2024 Narrative Resulting Agency Comment Lab Testing performed at: [facility] [address] ??Counts include 234 beds at the [facility] [phone] Judith Goel MD LAB - CHEMISTRY ORDERABLES [facility] ACCOUNT BILL [address] [place] [address] * DEXA BONE DENSITY AXIAL SKELETON (07/23/2023 11:25 AM CDT) Only the most recent of3 resultswithin the time period is included. Anatomical Region Laterality Modality Mammography 07/23/2023 11:3 [...] AM Judith Goel MD DEXA ORDERABLES * COMPREHENSIVE METABOLIC PANEL (06/09/2022 10:00 AM CDT) Only the most recent of4 resultswithin the time period is included. Glucose 88 65 - 99 mg/dL [facility] INSURANCE BILL BUN 11 8 - 27 mg/dL [facility] INSURANCE BILL Creatinine 0.83 0.57 - 1.00 mg/dL [facility] INSURANCE BILL eGFR by CKD-EPI 79 >59 mL/min/1.7 3 [facility] INSURANCE BILL BUN/Creatinine Ratio 13 12 - 28 [facility] INSURANCE BILL Sodium 142 134 - 144 mmol/L [facility] INSURANCE BILL Potassium 4.5 3.5 - 5.2 mmol/L [facility] INSURANCE BILL Chloride 104 96 - 106 mmol/L [facility] INSURANCE BILL CO2 22 20 - 29 mmol/L [facility] INSURANCE BILL Calcium 9.7 8.7 - 10.3 mg/dL [facility] INSURANCE BILL Protein Total 6.7 6.0 - 8.5 g/dL [facility] INSURANCE BILL Albumin 4.5 3.8 - 4.8 g/dL [facility] INSURANCE BILL Globulin Total 2.2 1.5 - 4.5 g/dL [facility] INSURANCE BILL Albumin/Globulin Ratio 2.0 1.2 - 2.2 [facility] INSURANCE BILL Bilirubin Total 0.5 0.0 - 1.2 mg/dL [facility] INSURANCE BILL Alkaline Phosphatase 64 44 - 121 IU/L [facility] INSURANCE BILL AST 19 0 - 40 IU/L [facility] INSURANCE BILL ALT 12 0 - 32 IU/L [facility] INSURANCE BILL Comment:FASTING Blood BLOOD SPECIMEN / Unknown 06/09/2022 10:00 AM CDT 06/09/2022 Narrative Resulting Agency Comment [facility]: [facility] [address] ??Counts include 234 beds at the [facility] [phone] Judith Goel MD LAB - CHEMISTRY ORDERABLES [facility] INSURANCE BILL [address] [place] [address] * VITAMIN D 25-HYDROXY (06/17/2021 1:28 PM CDT) Only the most recent of6 resultswithin the time period is included. Vitamin D, 25 Hydroxy 49.6 30.0 - 100.0 ng/mL [facility] ACCOUNT BILL Comment: Vitamin D deficiency has been defined by the [place] of Medicine and an Endocrine Society practice guideline as a level of serum 25-OH vitamin D less than 20 ng/mL (1,2). The Endocrine Society went on to further define vitamin D insufficiency as a level between 21 and 29 ng/mL (2). 1. IOM ([place] of Medicine). 2010. Dietary reference ?? intakes for calcium and D. [place]: The ?? National Academies Press. 2. Timothy MF, James NC, Makayla VILLAGOMEZ, et al. ?? Evaluation, treatment, and prevention of vitamin D ?? deficiency: an Endocrine Society clinical practice ?? guideline. JCEM. 2010; 96(7):1911-30. Blood BLOOD SPECIMEN / Unknown 06/17/2021 1:28 PM CDT 06/17/2021 Narrative Resulting Agency Comment Lab Testing performed at: [facility] [place] [address] ??Counts include 234 beds at the [facility] [phone] Georgiana Ricks APRN-CONFIGURATION MANAGEMENT ANALYST LAB - CHEMI STRY ORDERABLES [facility] ACCOUNT BILL [address] [place] [address] * TSH HI LOW REFLEX FREE T4 (06/17/2021 1:25 PM CDT) TSH 0.741 0.450 - 4.500 uIU/mL [facility] ACCOUNT BILL Blood BLOOD SPECIMEN / Unknown 06/17/2021 1:25 PM CDT 06/17/2021 Narrative Resulting Agency Comment Lab Testing performed at: [facility] [place] [address] ??Counts include 234 beds at the [facility] [phone] Georgiana Ricks APRN-CONFIGURATION MANAGEMENT ANALYST LAB - CHEMI STRY ORDERABLES Performing Organization Address City/[facility]/ZIP Co de Phone Number [facility] ACCOUNT BILL [address] [place] [address] * (ABNORMAL) BASIC METABOLIC PANEL (CALCIUM TOTAL) (06/17/2021 1:25 PM CDT) Only the most recent of5 resultswithin the time period is included. Glucose 116(H) 65 - 99 mg/dL [facility] ACCOUNT BILL BUN 12 8 - 27 mg/dL [facility] ACCOUNT BILL Creatinine 0.86 0.57 - 1.00 mg/dL [facility] ACCOUNT BILL eGFR by MDRD 72 >59 mL/min/1.7 3 [facility] ACCOUNT BILL eGFR by MDRD 83 >59 mL/min/1.7 3 [facility] ACCOUNT BILL Comment: [facility] currently reports eGFR in compliance with the current ??recommendations of the National Kidney Foundation. [facility] will ??update reporting as new guidelines are published from the NKF-ASN ??Task force. BUN/Creatinine Ratio 14 12 - 28 [facility] ACCOUNT BILL Sodium 140 134 - 144 mmol/L [facility] ACCOUNT BILL Potassium 4.3 3.5 - 5.2 mmol/L [facility] ACCOUNT BILL Chloride 102 96 - 106 mmol/L [facility] ACCOUNT BILL CO2 22 20 - 29 mmol/L [facility] ACCOUNT BILL Calcium 9.0 8.7 - 10.3 mg/dL [facility] ACCOUNT BILL Blood BLOOD SPECIMEN / Unknown 06/17/2021 1:25 PM CDT 06/17/2021 Narrative Resulting Agency Comment Lab Testing performed at: [facility] [place] [address] ??Counts include 234 beds at the [facility] [phone] Georgiana Ricks DAM WORKER-CONFIGURATION MANAGEMENT ANALYST LAB - CHEMI STRY ORDERABLES [facility] ACCOUNT BILL [address] [place] [address] * US SOFT TISSUE HEAD NECK (12/19/2020 10:03 AM TAPE RECORDER MECHANIC) Only the most recent of3 resultswithin the time period is included. Anatomical Region Laterality Modality Head Ultrasound 12/19/2020 3:21 PM TAPE RECORDER MECHANIC Impressions 12/19/2020 4:06 PM TAPE RECORDER MECHANIC NO SUSPICIOUS NODULES IN THE RIGHT THYROID LOBE. SURGICALLY ABSENT LEFT THYROID LOBE AND ISTHMUS. Edited by Marge Burns on 12/19/2020 3:45 PM *Reading Radiologist: Violet Villavicencio on 12/19/2020 at 4:06 PM Narrative 12/19/2020 4:06 PM TAPE RECORDER MECHANIC THYROID ULTRASOUND CLINICAL INDICATION: Multinodular thyroid goiter. Follow-up examination. Prior left hemithyroidectomy. COMPARISON: Thyroid ultrasound 12/06/2015. TECHNIQUE: Multiple longitudinal and transverse grayscale sonographic images of the thyroid gland were obtained. FINDINGS: RIGHT LOBE: 5.1 x 1.8 x 2.1 cm. Doppler vascularity within normal limits. NODULE 1: 11 x 6 x 8 mm round, mixed cystic and solid, wider than tall, smoothly marginated, no internal echogenic foci. TI-RADS category 2-not suspicious lesion. NODULE 2: 7 x 4 x 5 mm, mixed cystic and solid, wider than tall, smoothly marginated, no internal echogenic foci. TI-RADS category 2-not suspicious lesion. NODULE 3: 8 x 5 x 7 mm ovoid predominantly solid, hyperechoic, smoothly marginated, wider than tall, no internal echogenic foci. TI-RADS category 3 lesion. Based on size, no further management warranted. LEFT LOBE: Surgically absent. No residual mass or thyroid tissue. ISTHMUS: Surgically absent. No residual mass or thyroid tissue. Procedure Note Violet Villavicencio MD - 12/19/2020 THYROID ULTRASOUND CLINICAL INDICATION: Multinodular thyroid goiter. Follow-up examination. Prior left hemithyroidectomy. COMPARISON: Thyroid ultrasound 12/06/2015. TECHNIQUE: Multiple longitudinal and transverse grayscale sonographic images of the thyroid gland were obtained. FINDINGS: RIGHT LOBE: 5.1 x 1.8 x 2.1 cm. Doppler vascularity within normal limits. NODULE 1: 11 x 6 x 8 mm round, mixed cystic and solid, wider than tall, smoothly marginated, no internal echogenic foci. TI-RADS category 2-not suspicious lesion. NODULE 2: 7 x 4 x 5 mm, mixed cystic and solid, wider than tall, smoothly marginated, no internal echogenic foci. TI-RADS category 2-not suspicious lesion. NODULE 3: 8 x 5 x 7 mm ovoid predominantly solid, hyperechoic, smoothly marginated, wider than tall, no internal echogenic foci. TI-RADS category 3 lesion. Based on size, no further management warranted. LEFT LOBE: Surgically absent. No residual mass or thyroid tissue. ISTHMUS: Surgically absent. No residual mass or thyroid tissue. IMPRESSION NO SUSPICIOUS NODULES IN THE RIGHT THYROID LOBE. SURGICALLY ABSENT LEFT THYROID LOBE AND ISTHMUS. Edited by Marge Burns on 12/19/2020 3:45 PM *Reading Radiologist: Violet Villavicencio on 12/19/2020 at 4:06 PM Judith Goel MD US ORDERABLES * MAMMO SCREENING DIGITAL IMAGE BILAT [id number] (11/29/2020 11:49 AM TAPE RECORDER MECHANIC) Only the most recent of9 resultswithin the time period is included. Anatomical Region Laterality Modality Breast Bilateral Mammography 11/29/2020 1:08 PM TAPE RECORDER MECHANIC Narrative 11/29/2020 1:16 PM TAPE RECORDER MECHANIC DIGITAL BILATERAL SCREENING MAMMOGRAMS WITH CAD AND 3-D TOMOSYNTHESIS DATE: 11/29/2020 11:31 AM. PREVIOUS EXAM DATE: 10/21/2019, 06/21/2018. INDICATION: Screening. TECHNIQUE: Bilateral craniocaudad (CC) and mediolateral oblique (MLO) views. Images were interpreted with the aid of CAD. 3-D tomosynthesis images were performed. TECHNOLOGIST: Stephanie Milian RT (R)(M) TISSUE DENSITY: Scattered fibroglandular densities. FINDINGS: There is no discrete abnormality. There is no mass nor microcalcification. There is no significant new finding in either breast. ASSESSMENT: BI-RADS 1 - Negative. RECOMMENDATIONS: Continued annual screening mammography. The above findings should be correlated with physical examination. A relatively nonspecific study should not preclude additional evaluation if suspicious findings are present clinically. An [employer]. [facility] Breast [facility] utilizes [employer] as a reminder system to notify patients of their next recommended mammograms. Edited by Patricia Bradford on 11/29/2020 1:15 PM *Reading Radiologist: Osiris Acosta on 11/29/2020 at 1:16 PM Anthony Arzola DO MAMMO ORDERABLES * (ABNORMAL) TSH+FREE T4 PANEL (06/16/2019 3:54 PM CDT) TSH 0.01(L) 0.40 - 4.50 mIU/L [facility] T4 Free 1.9(H) 0.8 - 1.8 ng/dL [facility] Comment: Test Performed at: [facility] [place] [id number] [place] [address] ??[id number] WINNIE RODGERS DO,MPH 06/16/2019 3:54 PM CDT 06/16/2019 3:55 PM CDT Remberto Xavier MD LAB - CHEMISTRY [facility] [address] [place] [address] * ENDOTRACHEAL TUBE NOTE (05/17/2019 6:15 AM CDT) Narrative Vidya Brennan DO - 05/17/2019 6:15 AM CDT Anthony Meza APRN-CRNA ? 05/16/2019 ??9:25 AM Endotracheal Tube Placement: ? Patient Location: OR. Procedure: intubation ([id number]). Procedure Section: ?? Sedation: under general anesthesia. Indications for Airway Management: ??anesthesia Pretreatment: 100% O2 and LTA. Induction: standard IV Patient Position: ??supine Mask Ventilation: easy. Blade Type: John Blade Size: 4 Laryngoscopy View: grade 2 (partial cords) Intubation Adjuncts: Eschmann introducer Device: endotracheal tube Placement: oral Tube type: cuff - inflated Tube Size (MM): 7 Depth of Insertion (CM): 22 Measured From: lips Cuff volume (mL): ??6 Cuff Inflated With: air Number of Attempts: 1. Placement Verified By: direct visualization, CO2 detector, bilateral breath sounds, CO2 monitor and chest auscultation Tube secured with: ??adhesive tape. Difficult Airway? ??No. Staff Section ?? Anesthesia Provider: ANTHONY MEZA, Performed the procedure Vidya Brennan DO GENERAL ANESTHESIA O RDERABLES * (ABNORMAL) CALCIUM BLOOD (05/17/2019 4:07 AM CDT) Calcium 8.2(L) 8.4 - 10.2 mg/dL 05/17/2019 5:00 AM CDT [facility] Blood BLOOD SPECIMEN / Unknown Venipuncture / Unknown 05/17/2019 4:07 AM CDT 05/17/2019 4:35 AM CDT Vamsi Grayson MD LAB - CHEMISTRY ORDERABLES Performing Organization Address City/State/[facility] Co de Phone Number [facility] [address] [place] [address] * GROSS + MICRO EXAM (STL) (05/16/2019 9:47 AM CDT) Only the most recent of3 resultswithin the time period is included. Case Report Surgical Pathology Report ? Case: [id number] ? Authorizing Provider: ??Vamsi Grayson MD ??Collected: ? 05/16/2019 09:47 AM ? Ordering Location: ? [facility] ? Received: ?05/16/2019 09:50 AM ? Pathologist: ? Chris Larios MD ? Specimens: ?? A) - Parathyroid Biopsy, biopsy of left inferior para thyroid ? B) - Thyroid Lobe, left thyroid node ? 05/18/2019 11:01 AM CDT [facility] Final Diagnosis A. Parathyroid, left, biopsy: -- Small parathyroid gland with no pathologic diagnosis B. Thyroid, left, thyroidectomy: -- Multinodular goiter [facility] 05/18/2019 11:01 AM CDT [facility] Gross Description Part A specimen is received fresh labeled with the patient's name Susan Carballo, and parathyroid biopsy left, and consists of an unoriented piece of silva-white tissue (0.6 x 0.2 x 0.2 cm, less than 0.1 gm). The specimen is frozen and subsequently submitted in cassette A1. AMA/scs/jam B. Received in container B in formalin labeled Susan Carballo, left thyroid lobe, consists of a 29 gm, 5.8 x 4.3 x 2.5 cm intact unoriented thyroid lobe. The specimen is inked. Section shows multiple soft pink-silva nodules ranging from 0.7 x 0.7 x 0.7 cm to 2.8 x 2.5 x 1.8 cm. Two of the nodules show central areas of scarring or fibrosis. There are a few areas of cystic degeneration. There are no gross areas of calcifications. [employer] sections including the entire nodules are submitted in cassettes B1-B12. /[facility] 05/18/2019 11:01 AM CDT [facility] Grossed By Chris Larios M.D. 05/18/20 11:01 AM T [facility] Microscopic Description A. The prominent sections confirm the frozen section diagnosis. Sections show a small parathyroid gland with fatty infiltration. B. Sections show thyroid tissue with multinodular goiter. The nodules show follicular structures containing colloid material. There is no evidence of malignancy. 05/18/2019 11:01 AM T [facility] Disclaimer All histochemical and/or immunohistochemical results are interpreted with controls that demonstrate appropriate staining reactions before reporting results. Note on use of immunocytochemistry reagents: This test was developed and its performance characteristic determined by [facility], Department of Laboratory Medicine. It has not been cleared or approved by the U.S. Food and Drug Administration (FDA). The FDA has determined that such clearance or approval is not necessary. The test is used for clinical purpose. It should not be regarded as investigational or for research. This laboratory is certified to perform high complexity testing. 05/18/2019 11:01 AM CDT [facility] Embedded Images 05/18/2019 11:01 AM T [facility] Pathology/Cytology BIOPSY OF PARATHYROID GLAND / Unknown 05/16/2019 9:47 AM CDT 05/16/2019 9:50 AM CDT Miscellaneous samples (specimen) ENTIRE LOBE OF THYROID GLAND / Unknown 05/16/2019 9:57 AM CDT 05/16/2019 11:19 AM CDT Vamsi Grayson MD LAB - PATHOLOGY/ CYTOLOGY ORDERABLES [facility] [address] [place] [address] * EKG 12-LEAD (05/16/2019 7:08 AM CDT) Ventricular Rate 75 BPM [facility] Atrial Rate 75 BPM [facility] P-R Interval 158 ms [facility] QRS Duration ms 82 ms [facility] Q-T Interval ms 412 ms [facility] QTC Calculation (Bezet) 460 ms [facility] Calculated P [place] 58 degrees [facility] Calculated R [place] -42 degrees [facility] Calculated T [place] 39 degrees [facility] Interpretation EKG Normal sinus rhythm Left axis deviation Septal infarct , age undetermined Abnormal ECG No previous ECGs available Confirmed by Isha Gaitan ([id number]) on 05/17/2019 4:48:41 PM [facility] 05/16/2019 7:08 AM CDT 05/17/2019 4:48 PM CDT Vidya Brennan DO ECG ORDERABLES [facility] * IMAGING/RADIOLOGY/XRAY RESULTS ORDER (03/24/2019) Anatomical Region Laterality Modality Other Judith Goel MD IMAGING * HEPATITIS C AB W RFLX VERIFICATION (03/26/2018 11:24 AM CDT) [facility] Hepatitis C Antibody <0.1 0.0 - 0.9 s/co ratio [facility] ACCOUNT BILL Blood BLOOD SPECIMEN / Unknown 03/26/2018 11:24 AM CDT 03/26/2018 Narrative Resulting Agency Comment [facility] [address] [facility] ??Counts include 234 beds at the [facility] [phone] Remberto Xavier MD LAB - CHEMISTRY JAMES BLACKBURN [facility] ACCOUNT BILL [address] [place] [address] * REF LAB COMMENT (03/26/2018 11:24 AM CDT) Pathologist [facility] Comment [facility] ACCOUNT BILL Comment: Non reactive HCV antibody screen is consistent with no HCV infection, unless recent infection is suspected or other evidence exists to indicate HCV infection. 03/26/2018 11:2 4 AM CDT 03/26/2018 Narrative Resulting Agency Comment [facility] [place] [address] ??[place] [id number] Remberto Xavier MD LAB - CHEMISTRY JAMES BLACKBURN [facility] ACCOUNT BILL [address] [place] [address] * T4 TOTAL (07/09/2017 11:30 AM CDT) T4 Total 11.6 4.7 - 13.3 ug/dL 07/09/2017 12:31 PM CDT [facility] Blood BLOOD SPECIMEN / Unknown Lab Venipuncture / Unknown 07/09/2017 11:30 AM CDT 07/09/2017 12:02 PM CDT Judith Goel MD LAB - CHEMISTRY ORDERABLES Performing Organization Address City/[facility]/ZIP Co de Phone Number [facility] [address] [place] [address] * ENDOSCOPY, COLON, SCREENING (04/22/2017 1:56 PM CDT) Report Endoscopy POC _ Patient Name: Susan Carballo ?Procedure Date: 04/22/2017 1:56 PM ? Date of : 1960 ?Admit Type: Outpatient Age: 57 ? Gender: Female Attending MD: Marty Lira MD ? _ Procedure: ? Colonoscopy Indications: ? Screening for colorectal malignant neoplasm Providers: ? Marty Lira MD (Doctor), Jaz Bess RN Referring MD: ?Rmeberto Xavier MD (Referring MD) Medicines: ? Monitored [...] Procedure Code(s): ? --- Professional --- ? 10563, Colonoscopy, flexible; with removal of tumor(s), polyp(s), or ? other lesion(s) by snare technique ? 01773, 59, Colonoscopy, flexible; with biopsy, single or multiple ? --- Technical --- ? 04413, Colonoscopy, flexible; with removal of tumor(s), polyp(s), or ? other lesion(s) by snare technique ? 38440, 59, Colonoscopy, flexible; with biopsy, single or [...] abscess ? without bleeding CPT copyright 2015 [employer]. All rights reserved. The codes documented in this report are preliminary and upon alarm service technician review may be revised to meet current compliance requirements. Marty Lira MD 04/22/2017 2:37:44 PM This report has been signed electronically. Number of Addenda: 0 Note Initiated On: 04/22/2017 1:56 PM [facility] 04/22/2017 1:56 PM CDT Marty Lira MD GI PROCEDURE ORDERAB LES [facility] END[facility] * LAB RESULTS ORDER (11/21/2015) Remberto Xavier MD LAB - THERAPEUTIC DR ALEX MONITORING ORDERABLES * MAMMO DIAG DIRECT DIGITAL IMAGE UNIL RIGHT [id number] (06/04/2015 1:48 PM CDT) Anatomical Region Laterality Modality Right Mammography 06/04/2015 1:52 PM CDT Narrative 06/04/2015 3:32 PM CDT DIGITAL DIAGNOSTIC UNILATERAL RIGHT MAMMOGRAM PREVIOUS EXAM DATE: 05/28/2015 INDICATION: Nodular density subareolar right breast on recent screening mammogram. TECHNIQUE: Spot compression views right breast, craniocaudad (CC) and mediolateral oblique (MLO). TECHNOLOGIST: Stephanie Milian, RT (R)(M) TISSUE DENSITY: Scattered fibroglandular densities. FINDINGS: No persistent suspicious mass identified with spot compression. Results discussed with patient at time of examination. ASSESSMENT: (BI-RADS 1) Negative. RECOMMENDATIONS: Followup screening mammogram one year. The above findings should be correlated with physical examination. ??A relatively non-specific study should not preclude additional evaluation if suspicious findings are present clinically. An [employer] Certified Facility [facility] utilize Rx[employer] as a reminder system to notify patients of their next recommended mammogram. Edited by Marge Burns on 06/04/2015 3:07 PM Aundrea Velásquez MD MAMMO ORDERABLES * DEXA BONE DENSITY 2 SITES (05/28/2015 12:52 PM CDT) Anatomical Region Laterality Modality Mammography 05/28/2015 12:5 6 PM CDT Narrative 05/28/2015 1:13 PM CDT BONE MINERAL DENSITY STUDY INDICATION: ??Postmenopausal ovarian failure - osteoporosis screening. FINDINGS: The average bone mineral density from L1 to L4 is 1.109 g/cm2. T-score is -0.8. Z-score is 0.6. The average bone mineral density of the total left hip is 0.659 g/cm2. T-score is -2.8. ??Z-score is -1.7. ASSESSMENT: This patient is considered osteoporotic according to World Health Organization (WHO) criteria. Fracture risk is significant. Pharmacological treatment, if not already prescribed, should be started. A followup bone density test is recommended in one year to monitor response to therapy. [employer]IZATION DEFINITIONS OSTEOPENIA = -1 TO -2.5 SD BELOW T-SCORE. OSTEOPOROSIS = LESS THAN -2.5 SD BELOW T-SCORE Edited by Stacy Llamas on 05/28/2015 1:13 PM Procedure Note Mita Temple MD - 05/28/2015 BONE MINERAL DENSITY STUDY INDICATION: Postmenopausal ovarian failure - osteoporosis screening. FINDINGS: The average bone mineral density from L1 to L4 is 1.109 g/cm2. T-score is -0.8. Z-score is 0.6. The average bone mineral density of the total left hip is 0.659 g/cm2. T-score is -2.8. Z-score is -1.7. ASSESSMENT: This patient is considered osteoporotic according to World Health Organization (WHO) criteria. Fracture risk is significant. Pharmacological treatment, if not already prescribed, should be started. A followup bone density test is recommended in one year to monitor response to therapy. [employer]IZATION DEFINITIONS OSTEOPENIA = -1 TO -2.5 SD BELOW T-SCORE. OSTEOPOROSIS = LESS THAN -2.5 SD BELOW T-SCORE Edited by Stacy Llamas on 05/28/2015 1:13 PM Aundrea Velásquez MD DEXA ORDERABLES * FINE NEEDLE ASPIRATION (12/20/2014 4:46 PM TAPE RECORDER MECHANIC) Case Report Fine Needle Aspiration Report ? Case: [id number] ? Authorizing Provider: ??Judith Goel MD ?? Collected: ? 12/20/2014 04:46 PM ? Ordering Location: ? [facility] ?Received: ?12/21/2014 02:03 PM ? Pathologist: ? Isreal Santa MD ? Specimen: ?Thyroid Mass ? 12/27/2014 9:07 AM [facility] Final Diagnosis 1. ??Thyroid, mass, fine needle aspiration: -- ??Cellular changes consistent with colloid/nodular goiter JW/alj 12/27/2014 9:07 AM [facility] Gross Description PHYSICIAN/SURGEO N: ?Dr. Judith Goel COPY TO: INDICATIONS FOR PROCEDURE: ??Multinodular goiter OPERATION: ??Fine needle aspiration SPECIMEN: ?? Fine needle aspiration of thyroid mass ADEQUACY: GROSS: ?Received 10 cc 12/27/2014 9:07 AM [facility] Microscopic Description One ThinPrep slide from fine needle aspiration of thyroid mass was examined. ??Small groups of follicular cells are seen. ??Inflammatory cells predominately lymphocytes are present as well. ??Malignant cells are not identified. ??Colloid is noted. ??Changes are consistent with nodular/colloid goiter. MICAH/binh 12/27/2014 9:07 AM TAPE RECORDER MECHANIC [facility] Pathology/Cytolo gy MASS OF THYROID GLAND / Unknown 12/20/2014 4:46 PM TAPE RECORDER MECHANIC 12/21/2014 2:03 PM TAPE RECORDER MECHANIC Judith Goel MD LAB - PATHOLOGY/ CYTOLOGY ORDERABLES Performing Organization Address [facility] Co de Phone Number [facility] [address] [place] [address] * THYROID AB PANEL (TPO AB+THYROGLOB AB) (12/20/2014 12:20 PM TAPE RECORDER MECHANIC) Pathologist [facility] Thyroid Peroxidase TPO Antibody <0.3 0.0 - 9.0 IU/mL 12/21/2014 2:42 PM TAPE RECORDER MECHANIC [facility] ([facility]) Thyroglobulin Antibody 1.7 0.0 - 4.0 IU/mL 12/21/2014 2:42 PM [facility] ([facility]) Comment: INTERPRETIVE INFORMATION: Thyroglobulin Antibody ? A value of 4.0 IU/mL or less indicates a negative result for thyroglobulin antibodies. The Thyroglobulin Antibody assay is being performed using the Nadira Weatherby Access DxI method. Blood specimen (specimen) BLOOD SPECIMEN / Unknown Lab Venipuncture / Unknown 12/20/2014 12:20 PM TAPE RECORDER MECHANIC 12/20/2014 12:35 PM TAPE RECORDER MECHANIC Judith Goel MD LAB - CHEMISTRY ORDERABLES Performing Organization Address City/[facility]/ZIP Co de Phone Number [facility] [employer] ([facility]) [address] * HEMOGLOBIN A1C (HgbA1C) (04/07/2014 10:56 AM CDT) Hemoglobin A1c 5.6 4.8 - 5.6 % [facility] ACCOUNT BILL Comment: ? . ? Increased risk for diabetes: 5.7 - 6.4 ? Diabetes: >6.4 ? Glycemic control for adults with diabetes: <7.0 Whole blood specimen (specimen) BLOOD SPECIMEN WITH EDTA / Unknown 04/07/2014 10:56 AM CDT 04/07/2014 12:38 PM CDT Narrative Resulting Agency Comment [facility] [address] ??Counts include 234 beds at the [facility] [phone] Aundrea Velásquez MD LAB - CHEMISTRY JAMES BLACKBURN [facility] ACCOUNT BILL * (ABNORMAL) LIPID PROFILE (04/07/2014 10:56 AM [...] PM CDT Narrative Resulting Agency Comment [facility] [address] ??Counts include 234 beds at the [facility] [phone] Aundrea Velásquez MD LAB - CHEMISTRY JAMES BLACKBURN Performing Organization Address City/[facility]/ZIP Co de Phone Number [facility] ACCOUNT BILL * PATHOLOGY/CYTOLOGY REPORT ORDER (07/06/2013 11:26 PM CDT) Narrative 07/06/2013 11:26 PM CDT Ordered by an unspecified provider. Transcriptions Document, Scanned - 07/06/2013 11:26 PM CDT Scanned Document LAB - PATHOLOGY/CYTO LOGY ORDERABLES * CARDIAC RHYTHM STRIP ORDER (07/02/2013 6:50 PM CDT) Narrative 07/02/2013 6:50 PM CDT Ordered by an unspecified provider. Transcriptions Document, Scanned - 07/02/2013 6:50 PM CDT Scanned Document CARDIAC SERVICES ORD ERABLES * WET PREP SMEAR - POINT OF CARE (05/31/2013) Clue Cells (Wet Smear) POCT absent Yeast (Wet Smr) absent Trichomonads Wet Smear POCT absent WBC (Wet Smr) + Lactobacilli (Wet Smear) absent Whiff Test (Wet Smr) negative pH Wet Smear RBC Wet Smear POCT ENTIRE VAGINA / Unknown Geovani Bai MD LAB - POINT OF CARE ORDERABLES * (ABNORMAL) VAGINITIS PLUS (BV CA CT NG TRICH) (PO REF) (04/13/2013 4:05 PM CDT) Atopobium vaginae High - 2(A) Score [facility] ACCOUNT BILL BVAB 2 High - 2(A) Score [facility] ACCOUNT BILL Megashaera Low - 0 Score [facility] ACCOUNT BILL Comment: Calculate total score by adding the 3 individual bacterial vaginosis (BV) marker scores together. Total score is interpreted as follows: ? . Total score 0-1: Indicates the absence of BV. Total score ?? 2: Indeterminate for BV. Additional clinical data should ? be evaluated to establish a diagnosis. Total score 3-6: Indicates the presence of BV. ? . This test was developed and its performance characteristics determined by [facility]. ??It has not been cleared or approved by the Food and Drug Administration. ??The FDA has determined that such clearance or approval is not necessary. Jada albicans MAKENZIE Negative Negative [facility] ACCOUNT BILL Jada glabrata MAKENZIE Negative Negative [facility] ACCOUNT BILL Comment: This test was developed and its performance characteristics determined by [facility]. ??It has not been cleared or approved by the Food and Drug Administration. ??The FDA has determined that such clearance or approval is not necessary. Trichomonas vaginalis by MAKENZIE Negative Negative [facility] ACCOUNT BILL Chlamydia Trachomatis MAKENZIE Negative Negative [facility] ACCOUNT BILL GC MAKENZIE Negative Negative [facility] ACCOUNT BILL VAGINAL SWAB / Unknown 04/13/2013 4:05 PM CDT 04/13/2013 9:58 PM CDT Narrative Resulting Agency Comment [facility] [address] ??[facility] [phone] Geovani Bia MD LAB - MICROBIOLOGY O RDERABLES [facility] ACCOUNT BILL * GROSS + MICRO EXAM (11/30/2001 12:00 AM TAPE RECORDER MECHANIC) Result CASE NUMBER [id number] Comment: ORDERING PHYSICIAN ??LAKSHMI VELAZCO SPECIMEN TYPE ?Ileum-terminal Surgeon ?LAKSHMI VELAZCO M.D. Gross Exam ? Dr. Deborah Espinal M.D. Gross Report ? INDICATION FOR PROCEDURE ?? STOOL, OB POSITIVE, RLQ PAIN OPERATION GROSS THE SPECIMEN IS RECEIVED IN TWO CONTAINERS LABELED WITH THE PATIENT'S NAME. 1. ??LABELED TI - GROSSLY NORMAL, R/O OCCULT COLITIS . ??THE SPECIMEN CONSISTS OF FOUR FRAGMENTS OF LIGHT SILVA SOFT TISSUE, THE LARGEST MEASURING 2 MM. IN GREATEST DIMENSION. ??THE SPECIMEN IS ALL SUBMITTED IN CASSETTE A. 2. ??LABELED RECTUM - APHTHOUS APPEARING AREAS, R/O ?LYMPHOID NODULES . ??THE SPECIMEN CONSISTS OF FOUR FRAGMENTS OF LIGHT SILVA SOFT TISSUE, THE LARGEST MEASURING 2 MM. IN GREATEST DIMENSION. ?? THE SPECIMEN IS ALL SUBMITTED IN CASSETTE B. SL/SS MICROSCOPIC EXAM ? MICROSCOPIC 1. ??THE TERMINAL ILEAL BIOPSY SHOWS PIECES OF SMALL BOWEL WITH NORMAL VILLOUS ARCHITECTURE. ??NO SIGNIFICANT INFLAMMATION IS SEEN. ?? THERE IS NO EVIDENCE OF DYSPLASIA. ?? 2. ??THE BIOPSIES OF THE RECTUM DO SHOW SEVERAL SMALL INTRAMUCOSAL LYMPHOID AGGREGATES. ??THERE IS HOWEVER ALSO MILD INTERSTITIAL ACUTE INFLAMMATION OF UNCLEAR SIGNIFICANCE IN THIS SETTING. ??CLINICAL CORRELATION IS ALSO RECOMMENDED. ??THERE IS NO EVIDENCE OF DYSPLASIA. DIAGNOSIS ? DIAGNOSIS [1] TERMINAL ILEUM, COLOSCOPIC BIOPSY -- ?? NO PATHOLOGIC DIAGNOSIS [2] RECTUM, COLOSCOPIC BIOPSIES -- ?? RECTAL MUCOSA WITH SMALL LYMPHOID AGGREGATES AND MILD ACUTE ? INTERSTITIAL INFLAMMATION AB/SS [id number] X2 Released By ?JONNIE STRAUSS MISCELLANEOUS SAMPLE S / Unknown 11/30/2001 11/30/2001 11:53 AM TAPE RECORDER MECHANIC Historical Provider LAB - PATHOLOGY/C YTOLOGY ORDERABLES Care Teams Graduate Student Instructor Relationship Specialty Start Date End Date Anthony Arzola DO [address] [facility] [address] [place] [address] PCP - General Internal Medicine 12/19/20 [place] [address] [facility] [address] [place] [address] Endocrinology 05/28/15 Madelyn Leos MD [address] [place] [address] Obstetrics and Gynecology 07/09/17
--- OUTSIDE RECORDS SUMMARY | 2024-12-12 15:06 | XMS_ITS | Clinical Summary ---
Author Organization [facility] [employer] Address [address] [facility] [place] [address] Care Team Providers Care Machinist Set Up Name Role Phone Judith Goel MD Unavailable [phone] Madelyn Leos MD Unavailable [phone] Anthony Arzola DO Primary Care Provider [phone] Source Comments [facility],non-owned Affiliates and Associated Physician Practices is amultiple site organization consisting of ambulatory clinics and hospital sitesin [place], [place], [place] and [place]. This disclosure is being madepursuant to the Care Everywhere program and may not contain all information available regarding this patient. Last updated 18.[facility] [employer] Allergies Active Allergy Reactions Criticality Noted Date [...] 11/16/2019 Active Vitamin D3 (Cholecalciferol) 50 MCG (1999 UT) capsule Take 1 (one) capsule by [...] deficiency disease 04/07/2014 06/20/2019 Osteopenia 04/07/2014 11/29/2015 Encounters Date Type Department Care Team Description 09/15/2024 Refill [facility] - Endocrinology [address] [place] [address], [address] [address] Angy Castillo, NEEDLE LEADER-COM WRITER Refill Request from Last 3 Months Immunizations Name Administration Dates Next Due Covid Pfizer primary monoval ent 12+ yr 0.3mL Purple cap 11/29/2020,11/07/2020 Family History Medical History Relation Name Comments Heart Disease Father Hypertension Father Stroke Father Thyroid Disease Mother goiter on sy nthroid Relation Name Status Comments Father Mother Alive Social History Tobacco Use Types Packs/Day Years [...] Mass Index 19.73 06/27/2024 11:14 AM CDT Plan of Treatment Upcoming Encounters Date Type Department Care Team (Late st Contact Info) Description 06/27/2025 10:40 AM CDT Office Visit [facility] - Endocrinology [address] [place] [address], [address] [place] [address] [place] [address] [place] [address] [address] [place] [address] Health Maintenance Due Date Last Done Comments COLOGUARD (AGES 45-75) - COLON CA SCREENING 1960 CT COLONOGRAPHY - COLON CA SCREENING 1960 FIT - COLON CA SCREENING 1960 FLEX SIG - COLON CA SCREENING 1960 DTAP/TDAP/TD VACCINES (1 - Tdap) 1977 PNEUMOCOCCAL VACCINE 50+ (1 of 1 - PCV) 02/01/2008 ZOSTER VACCINE (1 of 2) 02/01/2008 LIPID TESTING 04/07/2019 04/07/2014 COLON MONITORING 04/22/2022 04/22/2017, 05/2017, 04/22/2017, Additional history exists Colorectal Cancer Screening 04/22/2022 COVID-19 VACCINE ( season) 2024 08/16/2021, 11/29/2020, 11/07/2020 INFLUENZA VACCINE (#1) 2024 0 (Done Outside Per Patient), 08/11/2019 (Done Outside Per Patient) DEPRESSION SCREENING 11/16/2024 BONE DENSITY TESTING 07/23/2025 07/23/2023, 11/29/2020, 12/07/2018, Additional history exists MAMMOGRAM 06/27/2026 06/27/2024, 08/0 01/2023, 05/22/2022, Additional history exists COLONOSCOPY - COLON CA SCREENING 04/22/2027 04/22/2017, 04/22/2017, 04/22/2017, Additional history exists Respiratory Syncytial Virus (RSV) Vaccine Pt: or over 60 yrs (1 - 1-dose 75+ series) 2033 HEPATITIS C SCREENING Completed 03/26/2018 HEPATITIS B VACCINE Aged Out No longe r eligible based on patient's age to complete this topic HIB VACCINE Aged Out No longer eligi ble based on patient's age to complete this topic HPV VACCINE Aged Out No longer eligi ble based on patient's age to complete this topic MENINGOCOCCAL (Group B) VACCINE Aged Out No longer eligible based on patient's age to complete this topic MENINGOCOCCAL VACCINE Aged Out No carmelo juancarlos eligible based on patient's age to complete this topic Goals Goal Patient Goal Type Associated Problems [...] CDT 03/26/2018 Narrative Resulting Agency Comment [facility] [address] [facility] [id number] Remberto Xavier MD LAB - CHEMISTRY [facility] ACCOUNT BILL [address] [place] [address] * ENDOSCOPY, COLON, SCREENING (04/22/2017 1:56 PM CDT) Report Endoscopy POC _ Patient Name: Susan Carballo ?Procedure Date: 04/22/2017 1:56 PM ? Date of : 1960 ?Admit Type: Outpatient Age: 57 ? Gender: Female Attending MD: Marty Lira MD ? _ Procedure: ? Colonoscopy Indications: ? Screening for colorectal malignant neoplasm Providers: ? Marty Lira MD (Doctor), Jaz Bess, SARA Referring MD: ?Remberto Xavier MD (Referring MD) [...] Procedure Code(s): ? --- Professional --- ? 14006, Colonoscopy, flexible; with removal of tumor(s), polyp(s), or ? other lesion(s) by snare technique ? 96441, 59, Colonoscopy, flexible; with biopsy, single or multiple ? --- Technical --- ? 20898, Colonoscopy, flexible; with removal of tumor(s), polyp(s), or ? other lesion(s) by snare technique ? 55445, 59, Colonoscopy, flexible; with biopsy, single or [...] abscess ? without bleeding CPT copyright 2015 [employer]. All rights reserved. The codes documented in this report are preliminary and upon nutrition partner review may be revised to meet current compliance requirements. Marty Lira MD 04/22/2017 2:37:44 PM This report has been signed electronically. Number of Addenda: 0 Note Initiated On: 04/22/2017 1:56 PM [facility] ENDOSCOPY 04/22/2017 1:56 PM CDT Marty Lira MD GI PROCEDURE ORDERAB LES [facility] ENDOSCOPY * (ABNORMAL) LIPID PROFILE [...] PM CDT Narrative Resulting Agency Comment [facility] [address] ??[facility] [id number] Aundrea Velásquez MD LAB - CHEMISTRY [facility] ACCOUNT BILL from Last 3 Months or Most Recently Relevant to Health Maintenance Advance Directives * Full Code (Latest Code Status on File) Date Activated Date Inactivated Comments 05/16/2019 1:49 PM 05/17/2019 4:02 PM Care Teams Machinist Set Up Relationship Specialty Start Date End Date Anthony Arzola DO [address] [facility] [address] [place] [address] PCP - General Internal Medicine 12/19/20 [place] [address] [address] Endocrinology 05/28/15 Madelyn Leos MD [address] [facility] [address] [place] [address] Obstetrics and Gynecology 07/09/17
--- OUTSIDE RECORDS SUMMARY | 2024-12-12 15:06 | XMS_ITS | Encounter Summary ---
Author Organization [facility] Address [address] [place] [address] Care Team Providers Care Armored Service Technician Name Role Phone Judith Goel MD Unavailable [phone] Remberto Xavier MD Unavailable Madelyn Leos MD Unavailable [phone] Remberto Xavier MD Primary Care Provider Remberto Xavier MD Unavailable Anthony Arzola DO Primary Care Provider [phone] Encounter Details Date Type Department Care Team (Late st Contact Info) Description 04/27/2019 [facility] Outpatient Visit [facility] [address] [place] [address] [place] [address] [address] Social History Tobacco Use Types Packs/Day Years Used Date Smoking Tobacco: Former Smokeless Tobacco: Never Comments:quit 30 yrs ago. Alcohol Use Standard Drinks/Week Comments Yes 0 (1 standard drink = 0.6 oz pur e alcohol) in moderation Sex and Gender Information Value Date Recorded Sex Assigned at Not on file Gender Identity Not on file Sexual Orientation Not on file documented as of this encounter Plan of Treatment Upcoming Encounters Date Type Department Care Team (Late st Contact Info) Description 06/27/2025 10:40 AM CDT Office Visit [facility] - Endocrinology [address] [facility], [address] [place] [address] [place] Goel [place] [id number] [place] [address] documented as of this encounter Goals Goal Patient Goal Type Associated Problems Recent Progress Patient-Stated? Author Blood Pressure < 140/90 Blood Pressure 118/78(2023 11:14 AM CDT) No Marissa Fletcher MA documented as of this encounter Visit Diagnoses Not on filedocumented in this encounter Care Teams Armored Service Technician Relationship Specialty Start Date End Date Remberto Xavier MD [address] [address] PCP - Attributed-Exclusive Choice 10/16/19 11/15/19 Remberto Xavier MD [address] [address] PCP - General Family Medicine 03/21/20 12/18/20 Remberto Xavier MD [address] [address] PCP - Attributed-[facility] STL 01/15/20 02/14/20 Anthony Arzola DO [address] [address] PCP - General Internal Medicine 12/19/20 Judith Goel MD [address] [place] [address] [place] [address] Endocrinology 05/28/15 Madelyn Leos MD [address] [facility] [address] [place] [address] Obstetrics and Gynecology 07/09/17 documented as of this encounter
--- OUTSIDE RECORDS SUMMARY | 2024-12-12 15:06 | XMS_ITS | Encounter Summary ---
Author Organization [facility] [employer] Address [address] [facility] [address] [place] [address] Care Team Providers Care Chief Hydroelectric Station Operator Name Role Phone Sample, Geovani Flannery MD Unavailable Aundrea Velásquez MD Primary Care Provider Judith Goel MD Unavailable Remberto Xavier MD Unavailable Madelyn Leos MD Unavailable [phone] Remberto Xavier MD Primary Care Provider [phone] Remberto Xavier MD Unavailable Anthony Arzola DO Primary Care Provider Reason for Visit * Reason Onset Date Comments Abnormal Imaging 05/29/2015 Encounter Details Date Type Department Care Team (Late st Contact Info) Description 05/29/2015 Telephone [facility] Breast Care [address] [place] [address] Georgiana Soliz, RT(R)(M) Abnormal Imaging Social History Tobacco Use Types Packs/Day Years Used Date Smoking Tobacco: Former Smokeless Tobacco: Never Alcohol Use Standard Drinks/Week Comments Yes 0 (1 standard drink = 0.6 oz pur e alcohol) Sex and Gender Information Value Date Recorded Sex Assigned at Not on file Gender Identity Not on file Sexual Orientation Not on file documented as of this encounter Miscellaneous Notes * Telephone Encounter - Georgiana Soliz RT(R)(M) - 05/29/2015 2:50 PM CDT Left message on voice mail for patient to call [facility] Imaging. She needs to return for additional imaging as a result of her recent mammogram.See report dated 05/28/2015. Orders in Epic. On pending schedule in RIS. documented in this encounter Plan of Treatment Upcoming Encounters Date Type Department Care Team (Late st Contact Info) Description 06/27/2025 10:40 AM CDT Office Visit [facility] - Endocrinology [address] [place] [address], [address] [place] [address] Judith Goel MD [address] [place] [address] [address] [place] [address] documented as of this encounter Visit Diagnoses Not on filedocumented in this encounter Care Teams Chief Hydroelectric Station Operator Relationship Specialty Start Date End Date Aundrea Velásquez MD [address] [facility] [address] [place] [address] PCP - General Internal Medicine 04/06/14 08/30/15 Remberto Xavier MD [address] [facility] [address] [facility] [place] [address] PCP - Attributed-Exclusive Choice 10/16/19 11/15/19 Remberto Xavier MD [address] [facility] [address] [place] [address] PCP - General Family Medicine 03/21/20 12/18/20 Remberto Xavier MD [address] [facility] [address] [place] [address] PCP - Attributed-[facility] EHP STL 01/15/20 02/14/20 Anthony Arzola DO [address] [facility] [address] [place], [place] [address] PCP - General Internal Medicine 12/19/20 Sample[place] [address] [facility] [address] [place] [address] Sample Maker Hand Obstetrics and Gynecology 01/15/12 07/08/17 [place] [address] [facility] [address] [place] [address] Endocrinology 05/28/15 Madelyn Leos MD 20[address] [email or web address] [address] [place], [place] [address] Obstetrics and Gynecology 07/09/17 documented as of this encounter
== END 2024-12-12 14:09 | disposition home or self-care (01) ==
PROVIDERS: PCP Internal Medicine
DX: I72.0 Aneurysm of carotid artery (principal); H90.3 Sensorineural hearing loss, bilateral; H93.13 Tinnitus, bilateral
CPT/HCPCS: 70481; Q9967

== ENCOUNTER 2024-12-14 15:56 | Outpatient (CLI) | payer OTHER, SELFPAY ==
[2024-12-14 16:31] LABS: Estimated Glomerular Filt Rate > 60
--- OUTSIDE RECORDS SUMMARY | 2024-12-14 16:35 | XMS_ITS | Encounter Summary ---
Author Organization [facility] Address [address] [facility] [place] [address] Care Team Providers Care Ec Teacher Name Role Phone Sample, Geovani Flannery MD Unavailable [phone] Aundrea Velásquez MD Primary Care Provider [phone] Judith Goel MD Unavailable Remberto Xavier MD Unavailable Madelyn Leos MD Unavailable [phone] Remberto Xavier MD Primary Care Provider Remberto Xavier MD Unavailable Anthony Arzola DO Primary Care Provider Encounter Details Date Type Department Care Team (Late st Contact Info) Description 12/20/2014 [facility] Outpatient Visit [facility] - Endocrinology [address] [facility], [address] [place] [address] Judith Goel MD [id number] [place] [address] [address] [place] [address] Social History Tobacco Use Types [...] Visit [facility] - Endocrinology [address] [facility], [address] [place] [address] [place] [address] [facility] [address] [place] [address] documented as of this encounter Visit Diagnoses Not on filedocumented in this encounter Care Teams Ec Teacher Relationship Specialty Start Date End Date Aundrea Velásquez MD [address] [facility] [address] [place] [phone] PCP - General Internal Medicine 04/06/14 08/30/15 Remberto Xavier MD [address] [facility] [address] [place] [address] PCP - Attributed-Exclusive Choice 05/01/17 11/15/19 Remberto Xavier MD [address] [facility] [address] [place] [address] PCP - General Family Medicine 03/21/20 12/18/20 Remberto Xavier MD [address] [facility] [address] [place] [address] PCP - Attributed-[facility] EHP STL 01/15/20 02/14/20 Anthony Arzola DO [address] [facility] [address] [place] [address] PCP - General Internal Medicine 12/19/20 Sample, [place] [address] [facility] [address] [place] [address] Care Team Coordinator Scheduler Obstetrics and Gynecology 01/15/12 07/08/17 [place] [address] [facility] [address] [place] [address] Endocrinology 05/28/15 Madelyn Leos MD [address] [facility] [address] [place] [address] Obstetrics and Gynecology 07/09/17 documented as of this encounter
--- OUTSIDE RECORDS SUMMARY | 2024-12-14 16:35 | XMS_ITS | Encounter Summary ---
Author Organization [facility] Address [address] [facility] [place] [address] Care Team Providers Care Jar Filler Name Role Phone Sample, Geovani Flannery MD Unavailable [phone] Aundrea Velásquez MD Primary Care Provider Judith Goel MD Unavailable Remberto Xavier MD Unavailable Madelyn Leos MD Unavailable [phone] Remberto Xavier MD Primary Care Provider Remberto Xavier MD Unavailable Anthony Arzola DO Primary Care Provider Encounter Details Date Type Department Care Team (Late st Contact Info) Description 12/20/2014 [facility] Outpatient Visit [facility] - Endocrinology [address] [facility], [address] [place] [address] Judith Goel MD [address] [place] [address] [address] [place] [address] Social History Tobacco Use Types [...] Description 06/27/2025 10:40 AM CDT Office [facility] - Endocrinology [address] [facility], [address] [place] [address] [place] [address] [facility] [address] [place] [address] documented as of this encounter Visit Diagnoses Not on filedocumented in this encounter Care Teams Jar Filler Relationship Specialty Start Date End Date Aundrea Velásquez MD [address] [facility] [address] [place] [phone] PCP - General Internal Medicine 04/06/14 08/30/15 Remberto Xavier MD [address] [facility] [address] [place] [address] PCP - Attributed-Exclusive Choice 05/01/17 11/15/19 Remberto Xavier MD [address] [facility] [address] [place] [address] PCP - General Family Medicine 03/21/20 12/18/20 Remberto Xavier MD [address] [facility] [address] [place] [address] PCP - Attributed-[facility] EHP STL 01/15/20 02/14/20 Anthony Arzola DO [address] [facility] [address] [place] [address] PCP - General Internal Medicine 12/19/20 Sample[place] [address] [facility] [address] [place] [address] Mapper Obstetrics and Gynecology 01/15/12 07/08/17 [place] [address] [facility] [address] [place] [address] Endocrinology 05/28/15 Madelyn Leos MD [address] [facility] [address] [place] [address] Obstetrics and Gynecology 07/09/17 documented as of this encounter
--- OUTSIDE RECORDS SUMMARY | 2024-12-14 16:35 | XMS_ITS | Patient Health Summary ---
Author Organization [facility] Address [address] [place] [address] Care Team Providers Care Processes Chemical Design Engineer Name Role Phone Judith Goel MD Unavailable Madelyn Leos MD Unavailable Anthony Arzola DO Primary Care Provider [phone] Note from [facility],non-owned Affiliates and Associated Physician Practices is amultiple site organization consisting of ambulatory clinics and hospital sitesin [place], [place], [place] and [place]. This disclosure is being madepursuant to the Care Everywhere program and may not contain all information available regarding this patient. Last updated 18.[facility] Allergies * Sulfa Drugs(Rash) -Low Criticality [...] performed at: [facility] [address] ??[place] [phone] Judith Goel MD LAB - CHEMISTRY ORDERABLES [facility] ACCOUNT BILL [address] [place] [address] * T4 FREE (06/06/2024 10:55 AM CDT) Only the most recent of13 resultswithin the time period is included. T4 Free 1.62 0.82 - 1.77 ng/dL [facility] ACCOUNT BILL Blood BLOOD SPECIMEN / Unknown 06/06/2024 10:55 AM CDT 06/06/2024 Narrative Resulting Agency Comment Lab Testing performed at: [facility] [place] [address] ??[place] [phone] Judith Gole MD LAB - CHEMISTRY ORDERABLES Performing Organization Address [facility] Co de Phone Number [facility] ACCOUNT BILL [address] [place] [address] * T3 TOTAL (06/06/2024 10:55 AM CDT) Only the most recent of15 resultswithin the time period is included. T3 Total 111 71 - 180 ng/dL [facility] ACCOUNT BILL Blood BLOOD SPECIMEN / Unknown 06/06/2024 10:55 AM CDT 06/06/2024 Narrative Resulting Agency Comment Lab Testing performed at: [facility] [address] ??[facility] [phone] Judith Goel MD LAB - CHEMISTRY ORDERABLES [facility] ACCOUNT BILL [address] [place] [address] * DEXA BONE DENSITY AXIAL SKELETON (07/23/2023 [...] Resulting Agency Comment [facility] performed [facility]: [facility] [address] [facility] ??[facility] [phone] Judith Goel MD LAB - CHEMISTRY ORDERABLES [facility] INSURANCE BILL [address] [place] [address] * VITAMIN D 25-HYDROXY (06/17/2021 1:28 PM CDT) Only the most recent of6 resultswithin the time period is included. Vitamin D, 25 Hydroxy 49.6 30.0 - 100.0 ng/mL [facility] ACCOUNT BILL Comment: Vitamin D deficiency has been defined by the [place] [employer] and an Endocrine Society practice guideline as a level of serum 25-OH vitamin D less than 20 ng/mL (1,2). The Endocrine Society went on to further define vitamin D insufficiency as a level between 21 and 29 ng/mL (2). 1. IOM ([place] [employer]). 2010. Dietary reference ?? intakes [...] Agency Comment Lab Testing performed at: [facility] [place] [address] ??[facility] [phone] Georgiana Ricks APRN-WAITER/WAITRESS FORMAL LAB - CHEMI STRY ORDERABLES [facility] ACCOUNT BILL [address] [place] [address] * TSH HI LOW REFLEX FREE T4 (06/17/2021 1:25 PM CDT) TSH 0.741 0.450 - 4.500 uIU/mL [facility] ACCOUNT BILL Blood BLOOD SPECIMEN / Unknown 06/17/2021 1:25 PM CDT 06/17/2021 Narrative Resulting Agency Comment Lab Testing performed at: [facility] [place] [address] ??[facility] [phone] Georgiana Ricks APRN-WAITER/WAITRESS FORMAL LAB - CHEMI STRY ORDERABLES Performing Organization Address City/[facility]/ZIP Co de Phone Number [facility] ACCOUNT BILL [address] [place] [address] * (ABNORMAL) BASIC METABOLIC PANEL (CALCIUM TOTAL) [...] Agency Comment Lab Testing performed at: [facility] [place] [address] ??[facility] [phone] Georgiana Ricks ALODIZE MACHINE HELPER-WAITER/WAITRESS FORMAL LAB - CHEMI STRY ORDERABLES [facility] ACCOUNT BILL [address] [place] [address] * US SOFT TISSUE HEAD NECK (12/19/2020 10:03 AM STRAINER CLEANER) Only the most recent of3 resultswithin the time period is included. Anatomical Region Laterality Modality Head Ultrasound 12/19/2020 3:21 PM STRAINER CLEANER Impressions 12/19/2020 4:06 PM STRAINER CLEANER NO SUSPICIOUS NODULES IN THE RIGHT THYROID LOBE. SURGICALLY ABSENT LEFT THYROID LOBE AND ISTHMUS. Edited by Marge Burns on 12/19/2020 3:45 PM *Reading Radiologist: Violet Villavicencio on 12/19/2020 at 4:06 PM Narrative 12/19/2020 4:06 PM STRAINER CLEANER THYROID ULTRASOUND CLINICAL INDICATION: Multinodular thyroid goiter. [...] DIGITAL IMAGE BILAT G0202 (11/29/2020 11:49 AM STRAINER CLEANER) Only the most recent of9 resultswithin the time period is included. Anatomical Region Laterality Modality Breast Bilateral Mammography 11/29/2020 1:08 PM STRAINER CLEANER Narrative 11/29/2020 1:16 PM STRAINER CLEANER DIGITAL BILATERAL SCREENING MAMMOGRAMS WITH CAD AND [...] if suspicious findings are present clinically. An [employer] Facility. [facility] Breast [facility] utilizes KidzVuz as a reminder system to notify patients of their next recommended mammograms. Edited by Patricia Bradford on 11/29/2020 1:15 PM *Reading Radiologist: Osiris Acosta on 11/29/2020 at 1:16 PM Anthony Arzola DO MAMMO ORDERABLES * (ABNORMAL) TSH+FREE T4 PANEL (06/16/2019 3:54 PM CDT) TSH 0.01(L) 0.40 - 4.50 mIU/L [facility] T4 Free 1.9(H) 0.8 - 1.8 ng/dL [facility] Comment: Test Performed at: [facility] [id number] [place] [address] ??[phone] WINNIE RODGERS DO,MPH 06/16/2019 3:54 PM CDT 06/16/2019 3:55 PM CDT Remberto Xavier MD LAB - CHEMISTRY JAMES BLACKBURN [facility] [address] [place] [address] * ENDOTRACHEAL TUBE NOTE (05/17/2019 6:15 AM CDT) Narrative Vidya Brennan DO - 05/17/2019 6:15 AM CDT Anthony Meza APRN-CRNA ? 05/16/2019 ??9:25 AM Endotracheal Tube Placement: ? Patient Location: OR. Procedure: intubation (09252). Procedure Section: ?? Sedation: under general anesthesia. [...] - 10.2 mg/dL 05/17/2019 5:00 AM CDT [facility] Blood BLOOD SPECIMEN / Unknown Venipuncture / Unknown 05/17/2019 4:07 AM CDT 05/17/2019 4:35 AM CDT Vamsi Grayson MD LAB - CHEMISTRY ORDERABLES Performing Organization Address City/State/[facility] Co de Phone Number [facility] [address] [place] [address] * GROSS + MICRO EXAM (STL) (05/16/2019 9:47 AM CDT) Only the most recent of3 resultswithin the time period is included. Case Report Surgical Pathology Report ? Case: [id number] ? Authorizing Provider: ??Vamsi Grayson MD ??Collected: [...] There are no gross areas of calcifications. Vacuum Tester Cans sections including the entire nodules are submitted in cassettes B1-B12. /[facility] 05/18/2019 11:01 AM CDT [facility] Grossed By Chris Larios M.D. 05/18/20 11:01 AM T [facility] Microscopic Description A. The prominent sections confirm the frozen section diagnosis. Sections show a small parathyroid gland with fatty infiltration. B. Sections show thyroid tissue with multinodular goiter. The nodules show follicular structures containing colloid material. There is no evidence of malignancy. 05/18/2019 11:01 AM T [facility] Disclaimer All histochemical and/or immunohistochemical results are interpreted with controls that demonstrate appropriate staining reactions before reporting results. Note on use of immunocytochemistry reagents: This test was developed and its performance characteristic determined by [facility], Department of Laboratory Medicine. It has not been cleared or approved by the U.S. Food and Drug Administration (FDA). The FDA has determined that such clearance or approval is not necessary. The test is used for clinical purpose. It should not be regarded as investigational or for research. This laboratory is certified to perform high complexity testing. 05/18/2019 11:01 AM CDT [facility] Embedded Images 05/18/2019 11:01 AM T [facility] Pathology/Cytology BIOPSY OF PARATHYROID GLAND / Unknown 05/16/2019 9:47 AM CDT 05/16/2019 9:50 AM CDT Miscellaneous samples (specimen) ENTIRE LOBE OF THYROID GLAND / Unknown 05/16/2019 9:57 AM CDT 05/16/2019 11:19 AM CDT Vamsi Grayson MD LAB - PATHOLOGY/ CYTOLOGY ORDERABLES [facility] [address] [place] [address] * EKG 12-LEAD (05/16/2019 7:08 AM CDT) Ventricular Rate 75 BPM [facility] Atrial Rate 75 BPM [facility] P-R Interval 158 ms [facility] QRS Duration ms 82 ms [facility] Q-T Interval ms 412 ms [facility] QTC Calculation (Bezet) 460 ms [facility] Calculated P [place] 58 degrees [facility] Calculated R [place] -42 degrees [facility] Calculated T [place] 39 degrees [facility] Interpretation EKG Normal [...] W RFLX VERIFICATION (03/26/2018 11:24 AM CDT) [facility] Hepatitis C Antibody <0.1 0.0 - 0.9 s/co ratio [facility] ACCOUNT BILL Blood BLOOD SPECIMEN / Unknown 03/26/2018 11:24 AM CDT 03/26/2018 Narrative Resulting Agency Comment [facility] [place] [address] [facility] ??[facility] [phone] Remberto Xavier MD LAB - CHEMISTRY JAMES BLACKBURN [facility] ACCOUNT BILL [address] [place] [address] * REF LAB COMMENT (03/26/2018 11:24 AM CDT) Pathologist [facility] Comment [facility] ACCOUNT BILL Comment: Non reactive HCV antibody screen is consistent with no HCV infection, unless recent infection is suspected or other evidence exists to indicate HCV infection. 03/26/2018 11:2 4 AM CDT 03/26/2018 Narrative Resulting Agency Comment [facility] [address] ??[place] [phone] Remberto Xavier MD LAB - CHEMISTRY JAMES BLACKBURN [facility] ACCOUNT BILL [address] [place] [address] * T4 TOTAL (07/09/2017 11:30 AM CDT) T4 Total 11.6 4.7 - 13.3 ug/dL 07/09/2017 12:31 PM CDT [facility] Blood BLOOD SPECIMEN / Unknown Lab Venipuncture / Unknown 07/09/2017 11:30 AM CDT 07/09/2017 12:02 PM CDT Judith Goel MD LAB - CHEMISTRY ORDERABLES Performing Organization Address City/[facility]/ZIP Co de Phone Number [facility] [address] [place] [address] * ENDOSCOPY, COLON, SCREENING (04/22/2017 1:56 PM [...] Procedure Code(s): ? --- Professional --- ? 34357, Colonoscopy, flexible; with removal of tumor(s), polyp(s), or ? other lesion(s) by snare technique ? 17120, 59, Colonoscopy, flexible; with biopsy, single or multiple ? --- Technical --- ? 06604, Colonoscopy, flexible; with removal of tumor(s), polyp(s), or ? other lesion(s) by snare technique ? 23829, 59, Colonoscopy, flexible; with biopsy, single or [...] abscess ? without bleeding CPT copyright 2015 [employer]. All rights reserved. The codes documented in this report are preliminary and upon fire marshal refinery review may be revised to meet current compliance requirements. Marty Lira MD 04/22/2017 2:37:44 PM This report has been signed electronically. Number of Addenda: 0 Note Initiated On: 04/22/2017 1:56 PM [facility] 04/22/2017 1:56 PM CDT Marty Lira MD GI PROCEDURE ORDERAB LES [facility] END[facility] * LAB RESULTS ORDER (11/21/2015) Remberto [...] if suspicious findings are present clinically. An [employer] Certified Facility [facility] Breast Centers utilize KidzVuz as a reminder system to notify patients [...] * FINE NEEDLE ASPIRATION (12/20/2014 4:46 PM STRAINER CLEANER) Case Report Fine Needle Aspiration Report ? Case: [id number] ? Authorizing Provider: ??Judith Goel MD ?? Collected: ? 12/20/2014 04:46 PM ? Ordering Location: ? [facility] ?Received: ?12/21/2014 02:03 PM ? Pathologist: ? Isreal Santa MD ? Specimen: ?Thyroid Mass ? 12/27/2014 9:07 AM [facility] Final Diagnosis 1. ??Thyroid, mass, fine needle aspiration: -- ??Cellular changes consistent with colloid/nodular goiter JW/alj 12/27/2014 9:07 AM [facility] Gross Description PHYSICIAN/SURGEO N: ?Dr. Judith Goel COPY TO: INDICATIONS FOR PROCEDURE: ??Multinodular goiter OPERATION: ??Fine needle aspiration SPECIMEN: ?? Fine needle aspiration of thyroid mass ADEQUACY: GROSS: ?Received 10 cc 12/27/2014 9:07 AM [facility] Microscopic Description One ThinPrep slide from fine needle aspiration of thyroid mass was examined. ??Small groups of follicular cells are seen. ??Inflammatory cells predominately lymphocytes are present as well. ??Malignant cells are not identified. ??Colloid is noted. ??Changes are consistent with nodular/colloid goiter. MICAH/binh 12/27/2014 9:07 AM STRAINER CLEANER [facility] Pathology/Cytolo gy MASS OF THYROID GLAND / Unknown 12/20/2014 4:46 PM STRAINER CLEANER 12/21/2014 2:03 PM STRAINER CLEANER Judith Goel MD LAB - PATHOLOGY/ CYTOLOGY ORDERABLES Performing Organization Address [facility] Co de Phone Number [facility] [address] [place] [address] * THYROID AB PANEL (TPO AB+THYROGLOB AB) (12/20/2014 12:20 PM STRAINER CLEANER) Pathologist [facility] Thyroid Peroxidase TPO Antibody <0.3 0.0 - 9.0 IU/mL 12/21/2014 2:42 PM STRAINER CLEANER [facility] ([facility]) Thyroglobulin Antibody 1.7 0.0 - 4.0 IU/mL 12/21/2014 2:[address] [facility] ([facility]) Comment: INTERPRETIVE INFORMATION: Thyroglobulin Antibody ? A value of 4.0 IU/mL or less indicates a negative result for thyroglobulin antibodies. The Thyroglobulin Antibody assay is being performed using the Nadira Howells Access DxI method. Blood specimen (specimen) BLOOD SPECIMEN / Unknown Lab Venipuncture / Unknown 12/20/2014 12:20 PM STRAINER CLEANER 12/20/2014 12:35 PM STRAINER CLEANER Judith Goel MD LAB - CHEMISTRY ORDERABLES Performing Organization Address City/[facility]/ZIP Co de Phone Number [facility] [employer] ([facility]) [address] * HEMOGLOBIN A1C (HgbA1C) (04/07/2014 10:56 [...] PM CDT Narrative Resulting Agency Comment [facility] [place] [address] ??[facility] [phone] Aundrea Velásquez MD LAB - CHEMISTRY JAMES [...] PM CDT Narrative Resulting Agency Comment [facility] [place] [address] ??[facility] [phone] Aundrea Velásquez MD LAB - CHEMISTRY JAMES BLACKBURN Performing Organization Address City/[facility]/ZIP Co de Phone Number [facility] ACCOUNT BILL [...] PM CDT Narrative Resulting Agency Comment [facility] [address] ??[facility] [phone] Geovani Bai MD LAB - MICROBIOLOGY O RDERABLES [facility] ACCOUNT BILL * GROSS + MICRO EXAM (11/30/2001 12:00 AM STRAINER CLEANER) Result CASE NUMBER [id number] Comment: ORDERING [...] AND MILD ACUTE ? INTERSTITIAL INFLAMMATION AB/SS 32635 X2 Released By ?JONNIE STRAUSS MISCELLANEOUS SAMPLE S / Unknown 11/30/2001 11/30/2001 11:53 AM STRAINER CLEANER Historical Provider LAB - PATHOLOGY/C YTOLOGY ORDERABLES Care Teams Processes Chemical Design Engineer Relationship Specialty Start Date End Date Anthony Arzola DO [address] [facility] [address] [place] [address] PCP - General Internal Medicine 12/19/20 [place] [address] [facility] [address] [place] [address] Endocrinology 05/28/15 Madelyn Leos MD [address] [place] [address] Obstetrics and Gynecology 07/09/17
--- OUTSIDE RECORDS SUMMARY | 2024-12-14 16:35 | XMS_ITS | Encounter Summary ---
Author Organization [facility] Address [address] [place] [address] Care Team Providers Care Wharfinger Chief Name Role Phone Sample, Geovani Flannery MD Unavailable [phone] Aundrea Velásquez MD Primary Care Provider [phone] Judith Goel MD Unavailable Remberto Xavier MD Unavailable Madelyn Leos MD Unavailable [phone] Remberto Xavier MD Primary Care Provider Remberto Xavier MD Unavailable Anthony Arzola DO Primary Care Provider [phone] Reason for Visit * Reason Onset Date Comments Abnormal Imaging 05/29/2015 Encounter Details Date Type Department Care Team (Late st Contact Info) Description 05/29/2015 Telephone [facility] Breast Care [address] [place] [address] Georgiana Soliz, RT(R)(M) Abnormal Imaging Social [...] on voice mail for patient to call [facility] Imaging. She needs to return for additional imaging as a result of her recent mammogram.See report dated 05/28/2015. Orders in Epic. On pending schedule in RIS. documented in this encounter Plan of Treatment Upcoming Encounters Date Type Department Care Team (Late st Contact Info) Description 06/27/2025 10:40 AM CDT Office Visit [facility] - Endocrinology [address] [place] [address], [address] [place] [address] Judith Goel MD [address] [place] [address] [address] [place] [address] documented as of this encounter Visit Diagnoses Not on filedocumented in this encounter Care Teams Wharfinger Chief Relationship Specialty Start Date End Date Aundrea Velásquez MD [address] [facility] [address] [place] [address] PCP - General Internal Medicine 04/06/14 08/30/15 Remberto Xavier MD [address] [facility] [address] [facility] [place] [address] PCP - Attributed-Exclusive Choice 05/01/17 11/15/19 Remberto Xavier MD [address] [facility] [address] [place] [address] PCP - General Family Medicine 03/21/20 12/18/20 Remberto Xavier MD [address] [facility] [address] [place] [address] PCP - Attributed-[facility] STL 01/15/20 02/14/20 Anthony Arzola DO [address] [facility] [address] [place], [place] [id number] PCP - General Internal Medicine 12/19/20 Sample, [place] [address] [facility] [address] [place] [address] Microgrinder Operator Obstetrics and Gynecology 01/15/12 07/08/17 [place] [address] [facility] [address] [place] [address] Endocrinology 05/28/15 Madelyn Leos MD [address] [facility] [address] [place], [place] [id number] Obstetrics and Gynecology 07/09/17 documented as of this encounter
--- OUTSIDE RECORDS SUMMARY | 2024-12-14 16:35 | XMS_ITS | Referral Summary ---
Author Organization [facility] [employer] Address [address] [facility] [place] [address] Care Team Providers Care Decorator Mannequin Name Role Phone Judith Goel MD Unavailable [phone] Madelyn Leos MD Unavailable [phone] Anthony Arzola DO Primary Care Provider [phone] Source Comments [facility],non-owned Affiliates and Associated Physician Practices is amultiple site organization consisting of ambulatory clinics and hospital sitesin [place], [place], [place] and [place]. This disclosure is being madepursuant to the Care Everywhere program and may not contain all information available regarding this patient. Last updated 18.[facility] Encounters Date Type Department Care Team Description 09/15/2024 Refill [facility] - Endocrinology [address] [place] [address], [facility] [address] [place] [address] Angy Castillo, TRAILER PARK MANAGER-CASH APPLICATION REPRESENTATIVE Refill Request from Last 3 Months Allergies [...] Immunizations Name Administration Dates Next Due Covid [employer] primary monoval ent 12+ yr 0.3mL Purple [...] Description 06/27/2025 10:40 AM CDT Office Visit [facility] - Endocrinology [address] [place] [address] [place] [address] [place] [address] Goals Goal Patient Goal Type Associated [...] CDT 03/26/2018 Narrative Resulting Agency Comment [facility] [place] [address] [facility] ??[facility] [phone] Remberto Xavier MD LAB - CHEMISTRY JAMES BLACKBURN [facility] Organization Address City/State/ZIP Co de Phone Number [facility] ACCOUNT BILL [address] [place] [address] * ENDOSCOPY, COLON, SCREENING (04/22/2017 1:56 PM [...] Procedure Code(s): ? --- Professional --- ? 93497, Colonoscopy, flexible; with removal of tumor(s), polyp(s), or ? other lesion(s) by snare technique ? 45855, 59, Colonoscopy, flexible; with biopsy, single or multiple ? --- Technical --- ? 69139, Colonoscopy, flexible; with removal of tumor(s), polyp(s), or ? other lesion(s) by snare technique ? 91782, 59, Colonoscopy, flexible; with biopsy, single or [...] in this report are preliminary and upon inpatient coder review may be revised to meet current compliance requirements. Marty Lira MD 04/22/2017 2:37:44 PM This report has been signed electronically. Number of Addenda: 0 Note Initiated On: 04/22/2017 1:56 PM [facility] 04/22/2017 1:56 PM CDT Marty Lira MD GI PROCEDURE ORDERAB LES Performing Organization Address [facility] Co de Phone Number [facility] * (ABNORMAL) LIPID PROFILE (04/07/2014 10:56 [...] PM CDT Narrative Resulting Agency Comment [facility] [address] ??[facility] [phone] Aundrea Velásquez MD LAB - CHEMISTRY JAMES BLACKBURN Performing Organization Address City/[facility]/ZIP Co de Phone Number [facility] ACCOUNT BILL from Last 3 Months or Most Recently Relevant to Health Maintenance Advance Directives * Full Code (Latest Code Status on File) Date Activated Date Inactivated Comments 05/16/2019 1:49 PM 05/17/2019 4:02 PM Care Teams Decorator Mannequin Relationship Specialty Start Date End Date Anthony Arzola DO [address] [facility] [address] [place] [address] PCP - General Internal Medicine 12/19/20 [place] [address] [facility] [address] [place] [address] Endocrinology 05/28/15 Madelyn Leos MD [address] [email or web address] [address] [place] [address] Obstetrics and Gynecology 07/09/17
--- OUTSIDE RECORDS SUMMARY | 2024-12-14 16:35 | XMS_ITS | Encounter Summary ---
Author Organization [facility] Health Address [address] [place] [address] Care Team Providers Care Nutrition Associate Name Role Phone Sample, Geovani Flannery MD Unavailable [phone] Judith Goel MD Unavailable Remberto Xavier MD Unavailable Madelyn Leos MD Unavailable [phone] Remberto Xavier MD Primary Care Provider Remberto Xavier MD Unavailable Anthony Arzola DO Primary Care Provider [phone] Encounter Details Date Type Department Care Team (Late st Contact Info) Description 02/07/2016 [facility] Remberto Xavier MD [address] [place] [address] Social History Tobacco Use Types Packs/Day Years [...] Description 06/27/2025 10:40 AM CDT Office Visit [facility] - Endocrinology [address] [place] [address] [place] [address] [place] [address] documented as of this encounter Goals Goal Patient Goal Type Associated Problems Recent Progress Patient-Stated? Author Blood Pressure < 140/90 Blood Pressure 118/78(2023 11:14 AM CDT) No Marissa Fletcher MA documented as of this encounter Visit Diagnoses Not on filedocumented in this encounter Care Teams Nutrition Associate Relationship Specialty Start Date End Date Remberto Xavier MD [address] [address] PCP - Attributed-Exclusive Choice 05/01/17 11/15/19 Remberto Xavier MD 2022 [facility] [address] [place] [address] PCP - General Family Medicine 03/21/20 12/18/20 Remberto Xavier MD [address] [address] PCP - Attributed-[facility] EHP STL 01/15/20 02/14/20 Anthony Arzola DO 2022 [facility] [address] [place] [address] PCP - General Internal Medicine 12/19/20 Geovani Bai MD [id number] [place] [address] [address] [place] [address] Director Web Obstetrics and Gynecology 01/15/12 07/08/17 [place] [address] [facility] [address] [place] [address] Endocrinology 05/28/15 Madelyn Leos MD 2023 [facility] [address] [place] [address] Obstetrics and Gynecology 07/09/17 documented as of this encounter
--- OUTSIDE RECORDS SUMMARY | 2024-12-14 16:36 | XMS_ITS | Encounter Summary ---
Author Organization [facility] Address [address] [place] [address] Care Team Providers Care Blueprint Duplicator Name Role Phone Judith Goel MD Unavailable Remberto Xavier MD Unavailable Madeyln Leos MD Unavailable [phone] Remberto Xavier MD Primary Care Provider Remberto Xavier MD Unavailable Anthony Arzola DO Primary Care Provider [phone] Encounter Details Date Type Department Care Team (Late st Contact Info) Description 04/27/2019 [facility] Outpatient Visit [facility] [address] [place] [address] [place] [address] [address] Social History Tobacco Use Types [...] Description 06/27/2025 10:40 AM CDT Office Visit [facility] - Endocrinology [address] [facility], [address] [address] [place] [address] [place] [address] documented as of this encounter Goals Goal Patient Goal Type Associated Problems Recent Progress Patient-Stated? Author Blood Pressure < 140/90 Blood Pressure 118/78(2023 11:14 AM CDT) No Marissa Fletcher MA documented as of this encounter Visit Diagnoses Not on filedocumented in this encounter Care Teams Blueprint Duplicator Relationship Specialty Start Date End Date Remberto Xavier MD [address] [address] PCP - Attributed-Exclusive Choice 05/01/17 11/15/19 Remberto Xavier MD [address] [address] PCP - General Family Medicine 03/21/20 12/18/20 Remberto Xavier MD [address] [address] PCP - Attributed-[facility] EHP STL 01/15/20 02/14/20 Anthony Arzola DO [address] [address] PCP - General Internal Medicine 12/19/20 Judith Goel MD [address] [place] [address] [address] [place] [address] Endocrinology 05/28/15 Madelyn Leos MD 2022 [facility] [address] [place] [address] Obstetrics and Gynecology 07/09/17 documented as of this encounter
--- OUTSIDE RECORDS SUMMARY | 2024-12-14 16:36 | XMS_ITS | Clinical Summary ---
Author Organization [facility] Address [address] [facility] [place] [address] Care Team Providers Care Music Publisher Name Role Phone Judith Goel MD Unavailable Madelyn Leos MD Unavailable [phone] Anthony Arzola DO Primary Care Provider [phone] Source Comments [facility],non-owned Affiliates and Associated Physician Practices is amultiple site organization consisting of ambulatory clinics and hospital sitesin [place], [place], [place] and [place]. This disclosure is being madepursuant to the Care Everywhere program and may not contain all information available regarding this patient. Last updated 18.[facility] Allergies Active Allergy Reactions Criticality Noted Date [...] Type Department Care Team Description 09/15/2024 Refill [facility] Medical [facility] - Endocrinology [address] [place] [address], [address] [address] Angy Castillo, DOPE MAINTENANCE WORKER-DIRECTOR OF ANCILLARY SERVICES Refill Request from Last 3 Months Immunizations [...] Description 06/27/2025 10:40 AM CDT Office Visit [facility] - Endocrinology [address] [place] [address], [address] [place] [address] Judith Goel [place] [address] [place] [address] [address] [place] [address] Health Maintenance Due Date Last [...] CDT 03/26/2018 Narrative Resulting Agency Comment [facility] [place] [address] [facility] ??[facility] [phone] Remberto Xavier MD LAB - CHEMISTRY [facility] ACCOUNT BILL [address] [place] [address] * ENDOSCOPY, COLON, SCREENING (04/22/2017 1:56 PM [...] Procedure Code(s): ? --- Professional --- ? 14700, Colonoscopy, flexible; with removal of tumor(s), polyp(s), or ? other lesion(s) by snare technique ? 96376, 59, Colonoscopy, flexible; with biopsy, single or multiple ? --- Technical --- ? 28931, Colonoscopy, flexible; with removal of tumor(s), polyp(s), or ? other lesion(s) by snare technique ? 99927, 59, Colonoscopy, flexible; with biopsy, single or [...] abscess ? without bleeding CPT copyright 2015 [employer]. All rights reserved. The codes documented in this report are preliminary and upon real estate developer review may be revised to meet current compliance requirements. Marty Lira MD 04/22/2017 2:37:44 PM This report has been signed electronically. Number of Addenda: 0 Note Initiated On: 04/22/2017 1:56 PM [facility] ENDOSCOPY 04/22/2017 1:56 PM CDT Marty Lira MD GI PROCEDURE ORDERAB LES [facility] ENDOSCOPY * (ABNORMAL) LIPID PROFILE (04/07/2014 10:56 [...] PM CDT Narrative Resulting Agency Comment [facility] [address] ??[facility] [phone] Aundrea Velásquez MD LAB - CHEMISTRY [facility] ACCOUNT BILL from Last 3 Months or Most Recently Relevant to Health Maintenance Advance Directives * Full Code (Latest Code Status on File) Date Activated Date Inactivated Comments 05/16/2019 1:49 PM 05/17/2019 4:02 PM Care Teams Music Publisher Relationship Specialty Start Date End Date Anthony Arzola DO 2022 [facility] [address] [place] [address] PCP - General Internal Medicine 12/19/20 [place] [address] [address] Endocrinology 05/28/15 Madelyn Leos MD 2022 [facility] [address] [place] [address] Obstetrics and Gynecology 07/09/17
== END 2024-12-14 15:57 | disposition home or self-care (01) ==
PROVIDERS: PCP Internal Medicine; Visit Provider Clinical Nurse Specialist
DX: I72.0 Aneurysm of carotid artery (principal)
CPT/HCPCS: 99199

== ENCOUNTER 2024-12-15 08:57 | Outpatient (CLI) | payer OTHER, SELFPAY ==
--- NOTE | ~2024-12-15 | CT_ITS ---
EXAMINATION: CTA BRAIN/CAROTID DATE: 12/15/2024 09:21 INDICATION: Aneurysm of carotid artery TECHNIQUE: Computed tomographic angiography (CTA) of the head and neck was performed with 100 mL Omni paque-350 intravenous contrast. Multiplanar reconstructions and maximum intensity projection 3D-recon structions of the carotid arteries and of the intracranial arteries were created by the technologist on a separate workstation. Precontrast CT of the head was also obtained. Automated exposure control and iterative reconstruction technique were employed.The dose-length product was 1623.17 mGy-cm. COMPARISON: None. FINDINGS: Carotid arteries: Visualized portion of the aortic arch is normal in caliber with minimal nonhemodynamically significan t atherosclerotic plaque and no dissection. There is small amount of atherosclerotic plaque with 0% s tenosis of the right and left carotid bulbs relative to normal distal artery lumen diameter (NASCET c riteria). There is a small dissection flap associated with a fusiform aneurysm measuring up to 8 mm m aximal diameter of the cephalad-most cervical portion of the right internal carotid artery. The cepha lad cranial portion of the left internal carotid artery is ectatic measuring up to 6 mm. There is a s accular aneurysm arising from the posterolateral margin of the cephalad-most cervical portion of the left internal carotid artery which measures 6 x 6 x 4 mm. Head: No acute intracranial hemorrhage, acute infarction or abnormal extra axial fluid collection. There is mild scattered white matter hypoattenuation consistent with chronic small vessel ischemic disease. V entricles are normal and symmetric. No mass/mass effect. No abnormally enhancing brain lesions identi fied. The orbits, paranasal sinuses and mastoid air cells are normal. Intracranial arteries The right vertebral artery is dominant. There is ectasia and mild scattered nonhemodynamically signif icant atherosclerotic plaque at the bilateral carotid siphons. There is no hemodynamically significan t stenosis in the vertebral, basilar and internal carotid arteries. There are no aneurysms identified . Both A1 and P1 segments are patent. The right P1 segment is diminutive with majority of flow to the right posterior circulation supplied via a right posterior communicating artery. Cerebral arterial a rborization appears symmetric. IMPRESSION: 1. Small amount of atherosclerotic plaque with 0% stenosis of the right and left carotid bulbs relati ve to normal distal artery lumen diameter (NASCET criteria). 2. 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 3. 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 4. Mild scattered white matter hypoattenuation consistent with chronic small vessel ischemic disease. No acute intracranial process. Reviewed, dictated and finalized at location B. RITY COMPLIANCE ENGINEER IMPRESSION: 1. Small amount of atherosclerotic plaque with 0% stenosis of the right and lef t carotid bulbs relative to normal distal artery lumen diameter (NASCET criteri a). 2. 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 3. Small saccular aneurysm arising from the ectatic cephalad cervical portion o f the left internal carotid artery. 4. Mild scattered white matter hypoattenuation consistent with chronic small ve ssel ischemic disease. No acute intracranial process.
--- OUTSIDE RECORDS SUMMARY | 2024-12-15 09:24 | XMS_ITS | Referral Summary ---
Author Organization [facility] Address [address] [facility] [place] [address] Care Team Providers Care Print Project Manager Name Role Phone Judith Goel MD Unavailable [phone] Madelyn Leos MD Unavailable [phone] Anthony Arzola DO Primary Care Provider [phone] Source Comments [facility],non-owned Affiliates and Associated Physician Practices is amultiple site organization consisting of ambulatory clinics and hospital sitesin [place], [place]. This disclosure is being madepursuant to the Care Everywhere program and may not contain all information available regarding this patient. 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+ yr 0.3mL Purple [...] Description 06/27/2025 10:40 AM CDT Office Visit [facility] - Endocrinology [address] [place] [address] [place] [address] [place] [address] Goals Goal Patient Goal Type Associated [...] CDT 03/26/2018 Narrative Resulting Agency Comment [facility] [address] [facility] ??[facility] [phone] Remberto Xavier MD LAB - CHEMISTRY J[facility] Organization Address City/State/ZIP Co de Phone Number [facility] ACCOUNT BILL [address] [place] [address] * ENDOSCOPY, COLON, SCREENING (04/22/2017 1:56 PM [...] Procedure Code(s): ? --- Professional --- ? 49942, Colonoscopy, flexible; with removal of tumor(s), polyp(s), or ? other lesion(s) by snare technique ? 29922, 59, Colonoscopy, flexible; with biopsy, single or multiple ? --- Technical --- ? 21757, Colonoscopy, flexible; with removal of tumor(s), polyp(s), or ? other lesion(s) by snare technique ? 77202, 59, Colonoscopy, flexible; with biopsy, single or [...] abscess ? without bleeding CPT copyright 2015 [employer]. All rights reserved. The codes documented in this report are preliminary and upon domestic violence counselor review may be revised to meet current compliance requirements. Marty Lira MD 04/22/2017 2:37:44 PM This report has been signed electronically. Number of Addenda: 0 Note Initiated On: 04/22/2017 1:56 PM [facility] ENDOSCOPY 04/22/2017 1:56 PM CDT Marty Lira MD GI PROCEDURE ORDERAB LES Performing Organization Address [facility] Co de Phone Number [facility] ENDOSCOPY * (ABNORMAL) LIPID PROFILE (04/07/2014 [...] PM CDT Narrative Resulting Agency Comment [facility] [address] ??[facility] [phone] Aundrea Velásquez MD LAB - CHEMISTRY JAMES BLACKBURN Performing Organization Address City/[facility]/ZIP Co de Phone Number [facility] ACCOUNT BILL from Last 3 Months or Most Recently Relevant to Health Maintenance Advance Directives * Full Code (Latest Code Status on File) Date Activated Date Inactivated Comments 05/16/2019 1:49 PM 05/17/2019 4:02 PM Care Teams Print Project Manager Relationship Specialty Start Date End Date Anthony Arzola DO 2022 [facility] [address] [place] [address] PCP - General Internal Medicine 12/19/20 [place] [address] [facility] [address] [place] [address] Endocrinology 05/28/15 Madelyn Leos MD [address] [employer] [address] [place] [address] Obstetrics and Gynecology 07/09/17
--- OUTSIDE RECORDS SUMMARY | 2024-12-15 09:24 | XMS_ITS | Patient Health Summary ---
Author Organization [facility] Address [address] [facility] [address] Care Team Providers Care Ice Hockey Coach Name Role Phone Judith Goel MD Unavailable [phone] Madelyn Leos MD Unavailable [phone] Anthony Arzola DO Primary Care Provider [phone] Note from [facility],non-owned Affiliates and Associated Physician Practices is amultiple site organization consisting of ambulatory clinics and hospital sitesin [place], [place], [place] and [place]. This disclosure is being madepursuant to the Care Everywhere program and may not contain all information available regarding this patient. Last updated 18.[facility] Allergies * Sulfa Drugs(Rash) -Low Criticality [...] performed at: [facility] [address] ??[place] [phone] Judith Goel MD LAB - CHEMISTRY ORDERABLES [facility] ACCOUNT BILL [address] [place] [address] * T4 FREE (06/06/2024 10:55 AM CDT) Only the most recent of13 resultswithin the time period is included. T4 Free 1.62 0.82 - 1.77 ng/dL [facility] ACCOUNT BILL Blood BLOOD SPECIMEN / Unknown 06/06/2024 10:55 AM CDT 06/06/2024 Narrative Resulting Agency Comment Lab Testing performed at: [facility] [place] [address] ??[place] [phone] Judith Goel MD LAB - CHEMISTRY ORDERABLES Performing Organization Address [facility] Co de Phone Number [facility] ACCOUNT BILL [address] [place] [address] * T3 TOTAL (06/06/2024 10:55 AM CDT) Only the most recent of15 resultswithin the time period is included. T3 Total 111 71 - 180 ng/dL [facility] ACCOUNT BILL Blood BLOOD SPECIMEN / Unknown 06/06/2024 10:55 AM CDT 06/06/2024 Narrative Resulting Agency Comment Lab Testing performed at: [facility] [address] ??[facility] [phone] Judith Goel MD LAB - CHEMISTRY ORDERABLES [facility] ACCOUNT BILL [address] [place] [address] * DEXA BONE DENSITY AXIAL SKELETON (07/23/2023 [...] Resulting Agency Comment Lab Testing performed at: [facility] [address] [facility] ??[facility] [phone] Judith Goel MD LAB - CHEMISTRY ORDERABLES [facility] INSURANCE BILL [address] [place] [address] * VITAMIN D 25-HYDROXY (06/17/2021 1:28 PM CDT) Only the most recent of6 resultswithin the time period is included. Vitamin D, 25 Hydroxy 49.6 30.0 - 100.0 ng/mL [facility] ACCOUNT BILL Comment: Vitamin D deficiency has been defined by the Purvis of Medicine and an Endocrine Society practice guideline as a level of serum 25-OH vitamin D less than 20 ng/mL (1,2). The Endocrine Society went on to further define vitamin D insufficiency as a level between 21 and 29 ng/mL (2). 1. IOM (Purvis of Medicine). 2010. Dietary reference ?? intakes [...] Agency Comment Lab Testing performed at: [facility] [place] [address] ??[facility] [phone] Georgiana Ricks APRN-BEHAVIORAL INSTRUCTOR LAB - CHEMI STRY ORDERABLES [facility] ACCOUNT BILL [address] [place] [address] * TSH HI LOW REFLEX FREE T4 (06/17/2021 1:25 PM CDT) TSH 0.741 0.450 - 4.500 uIU/mL [facility] ACCOUNT BILL Blood BLOOD SPECIMEN / Unknown 06/17/2021 1:25 PM CDT 06/17/2021 Narrative Resulting Agency Comment Lab Testing performed at: [facility] [place] [address] ??[facility] [phone] Georgiana Ricks APRN-BEHAVIORAL INSTRUCTOR LAB - CHEMI STRY ORDERABLES Performing Organization Address City/[facility]/ZIP Co de Phone Number [facility] ACCOUNT BILL [address] [place] [address] * (ABNORMAL) BASIC METABOLIC PANEL (CALCIUM TOTAL) [...] Agency Comment Lab Testing performed at: [facility] [place] [address] ??[facility] [phone] Georgiana Ricks CHILD CARE WORKER-BEHAVIORAL INSTRUCTOR LAB - CHEMI STRY ORDERABLES [facility] ACCOUNT BILL [address] [place] [address] * US SOFT TISSUE HEAD NECK (12/19/2020 10:03 AM SLURRY MAN) Only the most recent of3 resultswithin the time period is included. Anatomical Region Laterality Modality Head Ultrasound 12/19/2020 3:21 PM SLURRY MAN Impressions 12/19/2020 4:06 PM SLURRY MAN NO SUSPICIOUS NODULES IN THE RIGHT THYROID LOBE. SURGICALLY ABSENT LEFT THYROID LOBE AND ISTHMUS. Edited by Marge Burns on 12/19/2020 3:45 PM *Reading Radiologist: Violet Villavicencio on 12/19/2020 at 4:06 PM Narrative 12/19/2020 4:06 PM SLURRY MAN THYROID ULTRASOUND CLINICAL INDICATION: Multinodular thyroid goiter. [...] DIGITAL IMAGE BILAT G0202 (11/29/2020 11:49 AM SLURRY MAN) Only the most recent of9 resultswithin the time period is included. Anatomical Region Laterality Modality Breast Bilateral Mammography 11/29/2020 1:08 PM SLURRY MAN Narrative 11/29/2020 1:16 PM SLURRY MAN DIGITAL BILATERAL SCREENING MAMMOGRAMS WITH CAD AND [...] if suspicious findings are present clinically. An [employer] Facility. [facility] utilizes baseclick as a reminder system to notify patients of their next recommended mammograms. Edited by Patricia Bradford on 11/29/2020 1:15 PM *Reading Radiologist: Osiris Acosta on 11/29/2020 at 1:16 PM Anthony Arzola DO MAMMO ORDERABLES * (ABNORMAL) TSH+FREE T4 PANEL (06/16/2019 3:54 PM CDT) TSH 0.01(L) 0.40 - 4.50 mIU/L [facility] T4 Free 1.9(H) 0.8 - 1.8 ng/dL [facility] Comment: Test Performed at: [facility] [id number] [place] [address] ??[id number] WINNIE RODGERS DO,MPH 06/16/2019 3:54 PM CDT 06/16/2019 3:55 PM CDT Remberto Xavier MD LAB - CHEMISTRY JAMES BLACK[facility]URN [facility] [address] [place] [address] * ENDOTRACHEAL TUBE NOTE (05/17/2019 6:15 AM CDT) Narrative Vidya Brennan DO - 05/17/2019 6:15 AM CDT Anthony Meza APRN-CRNA ? 05/16/2019 ??9:25 AM Endotracheal Tube Placement: ? Patient Location: OR. Procedure: intubation (13746). Procedure Section: ?? Sedation: under general anesthesia. [...] - 10.2 mg/dL 05/17/2019 5:00 AM CDT [facility] Blood BLOOD SPECIMEN / Unknown Venipuncture / Unknown 05/17/2019 4:07 AM CDT 05/17/2019 4:35 AM CDT Vamsi Grayson MD LAB - CHEMISTRY ORDERABLES Performing Organization Address City/State/[facility] Co de Phone Number [facility] [address] [place] [address] * GROSS + MICRO EXAM (STL) (05/16/2019 9:47 AM CDT) Only the most recent of3 resultswithin the time period is included. Case Report Surgical Pathology Report ? Case: [id number] ? Authorizing Provider: ??Vamsi Grayson MD ??Collected: [...] There are no gross areas of calcifications. Sales Appointment Coordinator sections including the entire nodules are submitted in cassettes B1-B12. /[facility] 05/18/2019 11:01 AM CDT [facility] Grossed By Chris Larios M.D. 05/18/20 11:01 AM T [facility] Microscopic Description A. The prominent sections confirm the frozen section diagnosis. Sections show a small parathyroid gland with fatty infiltration. B. Sections show thyroid tissue with multinodular goiter. The nodules show follicular structures containing colloid material. There is no evidence of malignancy. 05/18/2019 11:01 AM T [facility] Disclaimer All histochemical and/or immunohistochemical results are interpreted with controls that demonstrate appropriate staining reactions before reporting results. Note on use of immunocytochemistry reagents: This test was developed and its performance characteristic determined by [facility], Department of Laboratory Medicine. It has not been cleared or approved by the U.S. Food and Drug Administration (FDA). The FDA has determined that such clearance or approval is not necessary. The test is used for clinical purpose. It should not be regarded as investigational or for research. This laboratory is certified to perform high complexity testing. 05/18/2019 11:01 AM CDT [facility] Embedded Images 05/18/2019 11:01 AM T [facility] Pathology/Cytology BIOPSY OF PARATHYROID GLAND / Unknown 05/16/2019 9:47 AM CDT 05/16/2019 9:50 AM CDT Miscellaneous samples (specimen) ENTIRE LOBE OF THYROID GLAND / Unknown 05/16/2019 9:57 AM CDT 05/16/2019 11:19 AM CDT Vamsi Grayson MD LAB - PATHOLOGY/ CYTOLOGY ORDERABLES [facility] [address] [place] [address] * EKG 12-LEAD (05/16/2019 7:08 AM CDT) Ventricular Rate 75 BPM [facility] Atrial Rate 75 BPM [facility] P-R Interval 158 ms [facility] QRS Duration ms 82 ms [facility] Q-T Interval ms 412 ms [facility] QTC Calculation (Bezet) 460 ms [facility] Calculated P [place] 58 degrees [facility]USE Calculated R [place] -42 degrees [facility]USE Calculated T [place] 39 degrees [facility] Interpretation EKG Normal [...] RFLX VERIFICATION (03/26/2018 11:24 AM CDT) [facility] Hepatitis C Antibody <0.1 0.0 - 0.9 s/co ratio [facility] ACCOUNT BILL Blood BLOOD SPECIMEN / Unknown 03/26/2018 11:24 AM CDT 03/26/2018 Narrative Resulting Agency Comment [facility] [place] [address] [facility] ??[facility] [phone] Remberto Xavier MD LAB - CHEMISTRY JAMES BLACKBURN [facility] ACCOUNT BILL [address] [place] [address] * REF LAB COMMENT (03/26/2018 11:24 AM CDT) Pathologist [facility] Comment [facility] ACCOUNT BILL Comment: Non reactive HCV antibody screen is consistent with no HCV infection, unless recent infection is suspected or other evidence exists to indicate HCV infection. 03/26/2018 11:2 4 AM CDT 03/26/2018 Narrative Resulting Agency Comment [facility] [address] ??[place] [phone] Remberto Xavier MD LAB - CHEMISTRY JAMES BLACKBURN [facility] ACCOUNT BILL [address] [place] [address] * T4 TOTAL (07/09/2017 11:30 AM CDT) T4 Total 11.6 4.7 - 13.3 ug/dL 07/09/2017 12:31 PM CDT [facility] Blood BLOOD SPECIMEN / Unknown Lab Venipuncture / Unknown 07/09/2017 11:30 AM CDT 07/09/2017 12:02 PM CDT Judith Goel MD LAB - CHEMISTRY ORDERABLES Performing Organization Address City/[facility]/ZIP Co de Phone Number [facility] [address] [place] [address] * ENDOSCOPY, COLON, SCREENING (04/22/2017 1:56 PM [...] Procedure Code(s): ? --- Professional --- ? 12602, Colonoscopy, flexible; with removal of tumor(s), polyp(s), or ? other lesion(s) by snare technique ? 48027, 59, Colonoscopy, flexible; with biopsy, single or multiple ? --- Technical --- ? 81461, Colonoscopy, flexible; with removal of tumor(s), polyp(s), or ? other lesion(s) by snare technique ? 62594, 59, Colonoscopy, flexible; with biopsy, single or [...] abscess ? without bleeding CPT copyright 2015 [employer]. All rights reserved. The codes documented in this report are preliminary and upon hims coder review may be revised to meet current compliance requirements. Marty Lira MD 04/22/2017 2:37:44 PM This report has been signed electronically. Number of Addenda: 0 Note Initiated On: 04/22/2017 1:56 PM [facility] 04/22/2017 1:56 PM CDT Marty Lira MD GI PROCEDURE ORDERAB LES [facility] * LAB RESULTS ORDER (11/21/2015) Remberto [...] if suspicious findings are present clinically. An [employer] Certified Facility [facility] utilize baseclick as a reminder system to notify patients [...] * FINE NEEDLE ASPIRATION (12/20/2014 4:46 PM SLURRY MAN) Case Report Fine Needle Aspiration Report ? Case: [id number] ? Authorizing Provider: ??Judith Goel MD ?? Collected: ? 12/20/2014 04:46 PM ? Ordering Location: ? [facility] ?Received: ?12/21/2014 02:03 PM ? Pathologist: ? Isreal Santa MD ? Specimen: ?Thyroid Mass ? 12/27/2014 9:07 AM [facility] Final Diagnosis 1. ??Thyroid, mass, fine needle aspiration: -- ??Cellular changes consistent with colloid/nodular goiter JW/alj 12/27/2014 9:07 AM [facility] Gross Description PHYSICIAN/SURGEO N: ?Dr. Judith Goel COPY TO: INDICATIONS FOR PROCEDURE: ??Multinodular goiter OPERATION: ??Fine needle aspiration SPECIMEN: ?? Fine needle aspiration of thyroid mass ADEQUACY: GROSS: ?Received 10 cc 12/27/2014 9:07 AM [facility] Microscopic Description One ThinPrep slide from fine needle aspiration of thyroid mass was examined. ??Small groups of follicular cells are seen. ??Inflammatory cells predominately lymphocytes are present as well. ??Malignant cells are not identified. ??Colloid is noted. ??Changes are consistent with nodular/colloid goiter. MICAH/binh 12/27/2014 9:07 AM SLURRY MAN [facility] Pathology/Cytolo gy MASS OF THYROID GLAND / Unknown 12/20/2014 4:46 PM SLURRY MAN 12/21/2014 2:03 PM SLURRY MAN Judith Goel MD LAB - PATHOLOGY/ CYTOLOGY ORDERABLES Performing Organization Address [facility] Co de Phone Number [facility] [address] [place] [address] * THYROID AB PANEL (TPO AB+THYROGLOB AB) (12/20/2014 12:20 PM SLURRY MAN) Pathologist [facility] Thyroid Peroxidase TPO Antibody <0.3 0.0 - 9.0 IU/mL 12/21/2014 2:42 PM SLURRY MAN [facility] ([facility]) Thyroglobulin Antibody 1.7 0.0 - 4.0 IU/mL 12/21/2014 2:42 PM [facility] ([facility]) Comment: INTERPRETIVE INFORMATION: Thyroglobulin Antibody ? A value of 4.0 IU/mL or less indicates a negative result for thyroglobulin antibodies. The Thyroglobulin Antibody assay is being performed using the Nadira Chittenden Access DxI method. Blood specimen (specimen) BLOOD SPECIMEN / Unknown Lab Venipuncture / Unknown 12/20/2014 12:20 PM SLURRY MAN 12/20/2014 12:35 PM SLURRY MAN Judith Goel MD LAB - CHEMISTRY ORDERABLES Performing Organization Address City/[facility]/ZIP Co de Phone Number [facility] [employer] ([facility]) [address] * HEMOGLOBIN A1C (HgbA1C) (04/07/2014 10:56 [...] PM CDT Narrative Resulting Agency Comment [facility] [place] [address] ??[facility] [phone] Aundrea Velásquez MD LAB - CHEMISTRY JAMES [...] PM CDT Narrative Resulting Agency Comment [facility] [place] [address] ??[facility] [phone] Aundrea Velásquez MD LAB - CHEMISTRY JAMES BLACKBURN Performing Organization Address City/[facility]/ZIP Co de Phone Number [facility] ACCOUNT [...] PM CDT Narrative Resulting Agency Comment [facility] [address] ??[facility] [phone] Geovani Bai MD LAB - MICROBIOLOGY O RDERABLES [facility] ACCOUNT BILL * GROSS + MICRO EXAM (11/30/2001 12:00 AM SLURRY MAN) Result CASE NUMBER [id number] Comment: ORDERING [...] AND MILD ACUTE ? INTERSTITIAL INFLAMMATION AB/SS [id number] X2 Released By ?JONNIE STRAUSS MISCELLANEOUS SAMPLE S / Unknown 11/30/2001 11/30/2001 11:53 AM SLURRY MAN Historical Provider LAB - PATHOLOGY/C YTOLOGY ORDERABLES Care Teams Ice Hockey Coach Relationship Specialty Start Date End Date Anthony Arzola DO [address] [facility] [address] [place] [address] PCP - General Internal Medicine 12/19/20 [place] [address] [facility] [address] [place] [address] Endocrinology 05/28/15 Madelyn Leos MD [address] [place] [address] Obstetrics and Gynecology 07/09/17
--- OUTSIDE RECORDS SUMMARY | 2024-12-15 09:24 | XMS_ITS | Encounter Summary ---
Author Organization [facility] Address [address] [place] [address] Care Team Providers Care Associate Professor Of Art Name Role Phone Sample, Geovani Flannery MD Unavailable Aundrea Velásquez MD Primary Care Provider Judith Goel MD Unavailable [phone] Remberto Xavier MD Unavailable Madelyn Leos MD Unavailable [phone] Remberto Xavier MD Primary Care Provider [phone] Remberto Xavier MD Unavailable Anthony Arzola DO Primary Care Provider [phone] Encounter Details Date Type Department Care Team (Late st Contact Info) Description 12/20/2014 [facility] Outpatient Visit [facility] - Endocrinology [address] [facility], [address] [place] [address] [place] [id number] [place] [address] [address] [place] [address] Social History Tobacco Use Types [...] Description 06/27/2025 10:40 AM CDT Office Visit [facility] - Endocrinology [address] [facility], [address] [place] [address] [place] [address] [facility] [address] [place] [address] documented as of this encounter Visit Diagnoses Not on filedocumented in this encounter Care Teams Associate Professor Of Art Relationship Specialty Start Date End Date Aundrea Velásquez MD [address] [facility] [address] [place] [address] PCP - General Internal Medicine 04/06/14 08/30/15 Remberto Xavier MD [address] [facility] [address] [facility] [place] [address] PCP - Attributed-Exclusive Choice 05/01/17 11/15/19 Remberto Xavier MD [address] [facility] [address] [place] [address] PCP - General Family Medicine 03/21/20 12/18/20 Remberto Xavier MD [address] [facility] [address] [facility] [place] [address] PCP - Attributed-[facility] EHP STL 01/15/20 02/14/20 Anthony Arzola DO [address] [facility] [address] [place] [address] PCP - General Internal Medicine 12/19/20 Sample, [place] [address] [facility] [address] [place] [address] Retail Cashier Obstetrics and Gynecology 01/15/12 07/08/17 [place] [address] [facility] [address] [place] [address] Endocrinology 05/28/15 Madelyn Leos MD [address] [facility] [address] [place] [address] Obstetrics and Gynecology 07/09/17 documented as of this encounter
--- OUTSIDE RECORDS SUMMARY | 2024-12-15 09:24 | XMS_ITS | Encounter Summary ---
Author Organization [facility] Address [address] [place] [address] Care Team Providers Care Milk Pickup Truck Driver Name Role Phone Sample, Geovani Flannery MD Unavailable [phone] Aundrea Velásquez MD Primary Care Provider Judith Goel MD Unavailable Remberto Xavier MD Unavailable Madelyn Leos MD Unavailable [phone] Remberto Xavier MD Primary Care Provider Remberto Xavier MD Unavailable Anthony Arzola DO Primary Care Provider Reason for Visit * Reason Onset Date Comments Abnormal Imaging 05/29/2015 Encounter Details Date Type Department Care Team (Late st Contact Info) Description 05/29/2015 Telephone [facility] [address] [place] [address] Georgiana Soliz, RT(R)(M) Abnormal Imaging Social [...] on voice mail for patient to call [facility] Imaging. She needs to return for additional imaging as a result of her recent mammogram.See report dated 05/28/2015. Orders in Epic. On pending schedule in RIS. documented in this encounter Plan of Treatment Upcoming Encounters Date Type Department Care Team (Late st Contact Info) Description 06/27/2025 10:40 AM CDT Office Visit [facility] - Endocrinology [address] [place] [address], [address] [place] [address] Judith Goel MD [address] [place] [address] [address] [place] [address] documented as of this encounter Visit Diagnoses Not on filedocumented in this encounter Care Teams Milk Pickup Truck Driver Relationship Specialty Start Date End Date Aundrea Velásquez MD [address] [facility] [address] [place] [address] PCP - General Internal Medicine 04/06/14 08/30/15 Remberto Xavier MD [address] [facility] [address] [place] [address] PCP - Attributed-Exclusive Choice 05/01/17 11/15/19 Remberto Xavier MD [address] [facility] [address] [place] [address] PCP - General Family Medicine 03/21/20 12/18/20 Remberto Xavier MD [address] [facility] [address] [place] [address] PCP - Attributed-[facility] EHP STL 01/15/20 02/14/20 Anthony Arzola DO [address] [facility] [address] [place], [place] [address] PCP - General Internal Medicine 12/19/20 Sample[place] [address] [facility] [address] [place] [address] Sanitation Worker Obstetrics and Gynecology 01/15/12 07/08/17 [place] [address] [facility] [address] [place] [address] Endocrinology 05/28/15 Madelyn Leos MD [address] [facility] [address] [place], [place] [address] Obstetrics and Gynecology 07/09/17 documented as of this encounter
--- OUTSIDE RECORDS SUMMARY | 2024-12-15 09:24 | XMS_ITS | Encounter Summary ---
Author Organization [facility] Address [address] [place] [address] Care Team Providers Care Parliamentary Librarian Name Role Phone Sample, Geovani Flannery MD Unavailable [phone] Judith Goel MD Unavailable Remberto Xavier MD Unavailable Madelyn Leos MD Unavailable [phone] Remberto Xavier MD Primary Care Provider [phone] Remberto Xavier MD Unavailable Anthony Arzola DO Primary Care Provider [phone] Encounter Details Date Type Department Care Team (Late st Contact Info) Description 02/07/2016 [facility] Outpatient Visit [facility]NAL [facility]PT Remberto Xavier MD [address] [place] [address] Social History Tobacco Use Types Packs/Day Years [...] Description 06/27/2025 10:40 AM CDT Office Visit [facility] - Endocrinology [address] [facility] [place] [address] [place] [address] [facility] [address] [place] [address] documented as of this encounter Goals Goal Patient Goal Type Associated Problems Recent Progress Patient-Stated? Author Blood Pressure < 140/90 Blood Pressure 118/78(2023 11:14 AM CDT) No Marissa Fletcher MA documented as of this encounter Visit Diagnoses Not on filedocumented in this encounter Care Teams Parliamentary Librarian Relationship Specialty Start Date End Date Remberto Xavier MD [address] [address] PCP - Attributed-Exclusive Choice 05/01/17 11/15/19 Remberto Xavier MD [address] [facility] [address] [place] [address] PCP - General Family Medicine 03/21/20 12/18/20 Remberto Xavier MD [address] [address] PCP - Attributed-[employer] EHP STL 01/15/20 02/14/20 Anthony Arzola DO [address] [facility] [address] [place] [address] PCP - General Internal Medicine 12/19/20 [place] Bai [place] [address] [place] [address] [address] [place] [address] Carbon Capture Power Plant Operator Obstetrics and Gynecology 01/15/12 07/08/17 [place] [address] [facility] [address] [place] [address] Endocrinology 05/28/15 Madelyn Leos MD [address] [facility] [address] [place] [address] Obstetrics and Gynecology 07/09/17 documented as of this encounter
--- OUTSIDE RECORDS SUMMARY | 2024-12-15 09:24 | XMS_ITS | Encounter Summary ---
Author Organization [facility] Address [address] [place] [address] Care Team Providers Care Under Cutting Machine Operator Name Role Phone Sample, Geovani Flannery MD Unavailable Aundrea Velásquez MD Primary Care Provider Judith Goel MD Unavailable Remberto Xavier MD Unavailable Madelyn Leos MD Unavailable [phone] Remberto Xavier MD Primary Care Provider Remberto Xavier MD Unavailable Anthony Arzola DO Primary Care Provider Encounter Details Date Type Department Care Team (Late st Contact Info) Description 12/20/2014 [facility] Outpatient Visit [facility] - Endocrinology [address] [facility], [address] [place] [address] Judith Goel MD [id number] [place] [address] [address] [place] [address] Social History Tobacco Use Types [...] Description 06/27/2025 10:40 AM CDT Office Visit [facility] - Endocrinology [address] [facility], [address] [place] [address] [place] [address] [facility] [address] [place] [address] documented as of this encounter Visit Diagnoses Not on filedocumented in this encounter Care Teams Under Cutting Machine Operator Relationship Specialty Start Date End Date Aundrea Velásquez MD [address] [facility][[address]] [address] [place] [id number] PCP - General Internal Medicine 04/06/14 08/30/15 Remberto Xavier MD [address] [facility] [address] [place] [address] PCP - Attributed-Exclusive Choice 05/01/17 11/15/19 Remberto Xavier MD [address] [facility] [address] [place] [address] PCP - General Family Medicine 03/21/20 12/18/20 Remberto Xavier MD [address] [facility] [address] [place] [address] PCP - Attributed-[facility] STL 01/15/20 02/14/20 Anthony Arzola DO [address] [facility] [address] [place] [address] PCP - General Internal Medicine 12/19/20 Sample[place] [address] [facility] [address] [place] [address] Tufter Operator Obstetrics and Gynecology 01/15/12 07/08/17 [place] [address] [facility] [address] [place] [address] Endocrinology 05/28/15 Madelyn Leos MD [address] [facility] [address] [place] [address] Obstetrics and Gynecology 07/09/17 documented as of this encounter
--- OUTSIDE RECORDS SUMMARY | 2024-12-15 09:25 | XMS_ITS | Clinical Summary ---
Author Organization [facility] Address [address] [facility] [place] [address] Care Team Providers Care Audio/Video Engineer Name Role Phone Judith Goel MD Unavailable Madelyn Leos MD Unavailable [phone] Anthony Arzola DO Primary Care Provider [phone] Source Comments [facility],non-owned Affiliates and Associated Physician Practices is amultiple site organization consisting of ambulatory clinics and hospital sitesin [place], [place] and [place]. This disclosure is being madepursuant to the Care Everywhere program and may not contain all information available regarding this patient. Last updated 18.[facility] Allergies Active Allergy Reactions Criticality Noted Date [...] Type Department Care Team Description 09/15/2024 Refill [facility] - Endocrinology [address] [place] [address], [address] [address] Angy Castillo, DISPLAY AND BANNER DESIGNER-INVESTIGATOR [employer]NAL [employer]UE Refill Request from Last 3 Months Immunizations [...] Description 06/27/2025 10:40 AM CDT Office Visit [facility] - Endocrinology [id number] [place] [address], [address] [place] [address] Judith Goel MD [id number] [place] [address] [address] [place] [address] Health Maintenance Due Date Last [...] CDT 03/26/2018 Narrative Resulting Agency Comment [facility] [address] [facility] ??[facility] [phone] Remberto Xavier MD LAB - CHEMISTRY [facility] ACCOUNT BILL [address] [place] [address] * ENDOSCOPY, COLON, SCREENING (04/22/2017 1:56 PM [...] Procedure Code(s): ? --- Professional --- ? 67294, Colonoscopy, flexible; with removal of tumor(s), polyp(s), or ? other lesion(s) by snare technique ? 01241, 59, Colonoscopy, flexible; with biopsy, single or multiple ? --- Technical --- ? 33600, Colonoscopy, flexible; with removal of tumor(s), polyp(s), or ? other lesion(s) by snare technique ? 04596, 59, Colonoscopy, flexible; with biopsy, single or [...] abscess ? without bleeding CPT copyright 2015 [employer]. All rights reserved. The codes documented in this report are preliminary and upon insurance coder review may be revised to meet current compliance requirements. Marty Lira MD 04/22/2017 2:37:44 PM This report has been signed electronically. Number of Addenda: 0 Note Initiated On: 04/22/2017 1:56 PM [facility] 04/22/2017 1:56 PM CDT Marty Lira MD GI PROCEDURE ORDERAB LES [facility] * (ABNORMAL) LIPID PROFILE (04/07/2014 [...] PM CDT Narrative Resulting Agency Comment [facility] [address] ??[facility] [phone] Aundrea Velásquez MD LAB - CHEMISTRY [facility] ACCOUNT BILL from Last 3 Months or Most Recently Relevant to Health Maintenance Advance Directives * Full Code (Latest Code Status on File) Date Activated Date Inactivated Comments 05/16/2019 1:49 PM 05/17/2019 4:02 PM Care Teams Audio/Video Engineer Relationship Specialty Start Date End Date Anthony Arzola DO [address] [facility] [address] [place] [address] PCP - General Internal Medicine 12/19/20 [place] [address] [address] Endocrinology 05/28/15 Madelyn Leos MD [address] [facility] [address] [place] [address] Obstetrics and Gynecology 07/09/17
--- OUTSIDE RECORDS SUMMARY | 2024-12-15 09:25 | XMS_ITS | Encounter Summary ---
Author Organization [facility] Address [address] [place] [address] Care Team Providers Care Bologna Lacer Name Role Phone Judith Goel MD Unavailable [phone] Remberto Xavier MD Unavailable Madelyn Leos MD Unavailable [phone] Remberto Xavier MD Primary Care Provider [phone] Remberto Xavier MD Unavailable Anthony Arzola DO Primary Care Provider [phone] Encounter Details Date Type Department Care Team (Late st Contact Info) Description 04/27/2019 [facility] Outpatient Visit [facility] [address] [place] [address] [place] [address] [address] Social History Tobacco Use Types [...] Description 06/27/2025 10:40 AM CDT Office Visit [facility] - Endocrinology [address] [facility], [address] [address] [place] Goel [place] [address] [place] [address] documented as of this encounter Goals Goal Patient Goal Type Associated Problems Recent Progress Patient-Stated? Author Blood Pressure < 140/90 Blood Pressure 118/78(2023 11:14 AM CDT) No Marissa Fletcher MA documented as of this encounter Visit Diagnoses Not on filedocumented in this encounter Care Teams Bologna Lacer Relationship Specialty Start Date End Date Remberto Xavier MD [address] [address] PCP - Attributed-Exclusive Choice 05/01/17 11/15/19 Remberto Xavier MD [address] [address] PCP - General Family Medicine 03/21/20 12/18/20 Remberto Xavier MD [address] [address] PCP - Attributed-[facility] STL 01/15/20 02/14/20 Anthony Arzola DO [address] [address] PCP - General Internal Medicine 12/19/20 Judith Goel MD [address] [place] [address] [address] [place] [address] Endocrinology 05/28/15 Madelyn Leos MD [address] [facility] [address] [place] [address] Obstetrics and Gynecology 07/09/17 documented as of this encounter
== END 2024-12-15 08:58 | disposition home or self-care (01) ==
PROVIDERS: PCP Internal Medicine; Visit Provider Clinical Nurse Specialist
DX: I72.0 Aneurysm of carotid artery (principal); I77.71 Dissection of carotid artery; R93.0 Abnormal findings on diagnostic imaging of skull and head, not elsewhere classified
CPT/HCPCS: 70496; 70498; Q9967